=== PATIENT | male | born 1940 | race Caucasian/White ===

== ENCOUNTER 2018-07-04 10:37 | Inpatient (IN) | payer MEDICARE ==
[2018-07-04] VITALS (41 sets, daily range): BP systolic 61–120; BP diastolic 33–99
[~2018-07-04] VITALS: Ht 167.6 cm; Wt 79.8 kg
[~2018-07-04 10:37] MED LIST: ASPI-1169 GT; ATOR10TA GT; BUSP10TA35 PO; CARV6.252 GT; GLIM1TAB2 PO; INSU100I30 SQ; LORA-259 PO; METO-295 PEG; MULT-447 GT; NUT.237L45 GT; OLAN2.5T3 PO; OMEG1CAP PO; PIPE3.3711 IV; QUET100T PO; QUET50TA GT; TRAZ-252 PO; VANC750F2 IV; VITA1TAB56 GT
--- NOTE | 2018-07-04 10:40 | NUR ---
DR RODRÍGUEZ AT BEDSIDE FOR EVAL.
[2018-07-04] MEDS ORDERED: CEFTRIAXONE 1GM BAG (ER ONLY) 50 ML IV ONE ×2 (11:00→11:06)
[2018-07-04] MEDS ORDERED: IV NS 0.9% 1,000 ML BAG IV ONE ×3 (11:00→13:00)
[2018-07-04] MEDS: VANCOMYCIN 1 GM in IV D5W 250 ML IV ONE ×2 (11:00→12:56)
--- NOTE | 2018-07-04 11:04 | NUR ---
RADIOLOGY AT BEDSIDE FOR CHEST XRAY.
[2018-07-04 11:07] LABS: BASOPHILS # (AUTO) 0.2 /CMM (0.0-0.2); BASOPHILS % (AUTO) 0.5 % (0.0-2.0); EOSINOPHILS % (AUTO) 1.6 % (0.0-6.0); HEMATOCRIT 29 % (39-51); HEMOGLOBIN 9.2 g/dL (13.5-17.5); LYMPHOCYTES # (AUTO) 3.3 /CMM (0.8-4.8); LYMPHOCYTES % (AUTO) 8.4 % (20.0-44.0); MEAN CORPUSCULAR HGB CONC 32 g/dl (31.0-36.0); MEAN CORPUSCULAR VOLUME 95 fL (80-96); NEUTROPHILS # (AUTO) 33.1 /CMM (1.8-8.9); NEUTROPHILS % (AUTO) 84.5 % (43.0-81.0); PLATELET COUNT (AUTO) 564 /CMM (150-450); RED BLOOD CELL COUNT(AUTO) 3.02 MIL/uL (4.5-6.0)
[2018-07-04 11:09] LABS: WHITE BLOOD COUNT (AUTO) 39.2 K/uL (4.3-11.0)
--- NOTE | 2018-07-04 11:29 | NUR ---
PT CLEANED, DIAPER REPLACED. DIARRHEA NOTED. RECTAL TEMP 99.2
[2018-07-04 11:33] LABS: ALANINE AMINOTRANSFERASE 77 U/L (12-78); ALKALINE PHOSPHATASE 132 U/L (46-116); ASPARTATE AMINOTRANSFERASE 74 U/L (15-37); BILIRUBIN,DIRECT 0.1 mg/dL (0.0-0.2); BILIRUBIN,TOTAL 0.4 mg/dL (0.2-1.0); CARBON DIOXIDE 22 mmol/L (21-32); CHLORIDE 101 mmol/L (98-107); CREATININE 3.5 mg/dL (0.6-1.3); GLUCOSE 217 mg/dL (74-106); POTASSIUM 6.1 mmol/L (3.5-5.1); SODIUM SERUM 135 mmol/L (136-145)
[2018-07-04 11:35] LABS: ALBUMIN 1.2 g/dL (3.4-5.0); UREA NITROGEN, BLOOD 114 mg/dL (7-18)
[2018-07-04] MEDS: AZITHROMYCIN 500 MG in IV D5W 250 ML IV ONE (11:51)
[2018-07-04 11:59] LABS: BAND % (MANUAL) 8 % (0.0-5.0); EOSINOPHILS % (MANUAL) 1 % (0-4); LYMPHOCYTES % (MANUAL) 10 % (16-48); NEUTROPHILS % (MANUAL) 81 (42-76)
[2018-07-04] MEDS ORDERED: LIDOCAINE 2% JEL UROJET 10 ML MM ONE (12:10)
[2018-07-04] MEDS ORDERED: INSU100V27 SQ (12:13)
[2018-07-04] MEDS ORDERED: AMIN887L GT (12:13)
[2018-07-04] MEDS ORDERED: NUT.237L30 GT (12:13)
[2018-07-04] MEDS ORDERED: INSU100V7 SQ (12:13)
[2018-07-04] MEDS ORDERED: PANT40TA2 GT (12:13)
[2018-07-04] MEDS ORDERED: SODIUM POLYSTYRENE SULFONATE 15 G/60 ML BOTTLE ONE (12:18)
[2018-07-04] MEDS ORDERED: SODIUM POLYSTYRENE SULFONATE 15 G/60 ML BOTTLE PO ONE (12:30)
[2018-07-04] MEDS ORDERED: PANT40SU2 GT (12:36)
[2018-07-04] MEDS ORDERED: QUET100T GT (12:36)
[2018-07-04] MEDS ORDERED: INSU100V28 SQ (12:36)
--- NOTE | 2018-07-04 12:37 | NUR ---
GOT ICU BED 262
[2018-07-04] MEDS: QUETIAPINE FUMARATE 25 MG TABLET PO SCH ×2 (13:00→17:59)
[2018-07-04 13:12] LABS: APPEARANCE,URINE Cloudy (CLEAR); BILIRUBIN,URINE SMALL (NEGATIVE); BLOOD, URINE Trace-intact Ery/uL (NEGATIVE); COLOR,URINE Dark (YELLOW); KETONES,URINE 15 (NEGATIVE); LEUKOCYTE ESTERASE ,URINE Small (NEGATIVE); NITRITE, URINE Positive (NEGATIVE); PROTEIN,URINE 30 mg/dl (NEGATIVE); UGLUCOSE Negative (NEGATIVE); UROBILINOGEN,URINE 0.2 EU/dL (0.2)
--- NOTE | 2018-07-04 13:15 | NUR ---
REPORT GIVEN TO ARPI. PT AWAITING TRANSFER TO FLOOR.
[2018-07-04 13:40] LABS: BACTERIA,URINE Moderate /HPF (None Seen); SQUAMOUS EPITHELIAL CELL,UR Few /HPF (None Seen)
[2018-07-04 13:42] LABS: WBC,URINE 20-50 /HPF (0-3)
--- NOTE | 2018-07-04 14:15 | NUR ---
SPECIFICATIONS CHECKER RECEIVED PT FROM ER BY AUGUSTINE WITH MONITOR. PT ADMITTED FOR SEPSIS. PT CONFUSED, UNABLE TO FOLLOW COMMANDS. O2 AT 2L NC IN PLACE WITH SPO2 96%.
[2018-07-04] MEDS: IV D5/ 0.9% NACL 1,000 ML IV PRN ×2 (14:36→22:50)
[2018-07-04] MEDS ORDERED: DIATR MEGLU/DIATRIZOATE SODIUM 30 ML BOTTLE (GASTROGRAPHIN) ONE (14:53)
[2018-07-04] MEDS ORDERED: NOREPINEPHRINE 8 MG in IV D5W 500 ML IV PRN (15:00)
[2018-07-04] MEDS ORDERED: CARVEDILOL 6.25 MG TABLET GT SCH (17:00)
--- NOTE | 2018-07-04 17:00 | NUR ---
ICU/RN: PT TAKEN TO CT SCAN WITH ORAL CONTRAST. WILL CONTINUE TO MONITOR
[2018-07-04] MEDS ORDERED: FEE PK DOSING 1 MIN EA MC ONE (17:53)
[2018-07-04] MEDS: ATORVASTATIN 10 MG TABLET GT SCH (17:59)
--- NOTE | 2018-07-04 18:15 | NUR ---
ICU/RN: PICC LINE INSERTED, CONSENT IN CHART. X RAY DONE.
--- NOTE | 2018-07-04 19:22 | NUR ---
ICU/RN ENDING NOTES,AM REPORT ENDORSED TO NIGHT NURSE. PT ON NASAL CANULA, PT RESTLESS, PULLING OUT LINES. PER MD ORDER BILATERAL SOFT WRIST RESTRAINTS PUT ON. PT SINUS ON TELE. AAOX1, DOES NOT FOLLOW COMMANDS. LEVO INFUSING FOR BP SUPPORT/IV FLUIDS INFUSING ORDERED. ALL NEEDS ATTENDED, SAFETY MEASURES TAKEN, BED IN LOW POSITION, SIDE RAILS UP, CALL LIGHT WITHIN REACH. PER FAMILY PT HAS DM, ENDORSED TO NIGHT NURSE TO FOLLOW UP ON ACCU CHECKS
--- NOTE | 2018-07-04 19:30 | NUR ---
ELIGIBILITY SUPERVISOR: RECEIVED PT AWAKE AND RESTLESS, UNABLE TO FOLLOW SIMPLE COMMANDS. ON 2L O2 VIA NC WT 02 SAT 92% AND ABOVE. SR-ST ON BUSINESS OFFICE REPRESENTATIVE WT OCCASIONAL PVCs. AFEBRILE. TATA PICC LINE INFUSING LEVOPHED AT 6 MCG/MIN FOR BP SUPPORT AND D5NS AT 125ML/HR. WT NO S/S OF COMPLICATIONS. F/C PATENT AND INTACT DRAINING TEA COLORED URINE TO GRAVITY. BILAT. SOFT WRIST RESTRAINTS IN PLACE FOR EPISODES OF TRYING TO REMOVE IV TUBINGS. NO NEW SKIN BREAKDOWN AND NOTED WT PALPABLE PULSES. WILL START GTF ONCE ASIC VERIFICATION ENGINEER DELIVERS GLUCERNA 1.2 BOTTLE. HOB AT 35 DEGREES. SAFETY PRECAUTION NOTED.
[2018-07-04] MEDS ORDERED: MEROPENEM 500 MG in IV NS 0.9% 50 ML IV SCH (20:00)
[2018-07-04] MEDS: QUETIAPINE FUMARATE 100 MG TABLET GT SCH (22:02)
[2018-07-04] MEDS: GLUCERNA 1.2 1,000 ML BOTTLE GT SCH (22:03)
[2018-07-04] MEDS: INSULIN GLARGINE, 100 UNIT/ML CARTRIDGE SQ SCH (22:13)
[2018-07-05] VITALS (95 sets, daily range): BP systolic 81–113; BP diastolic 39–73
[2018-07-05] MEDS ORDERED: DEXTROSE 50%-WATER 50 ML DISP.SYRIN IV PRN
--- NOTE | 2018-07-05 00:45 | NUR ---
SUPERVISOR TRAVEL INFORMATION CENTER: CALLED AND NOTIFIED DR. ROSALES OF PATIENT'S NOT ON ACCUCHEK AND RECHECKED BLOOD SUGAR WT RESULT OF 375 FROM 353. DISCUSSED CURRENT MEDS WT NEW ORDERS. NOTED AND CARRIED.
[2018-07-05] MEDS: BLOOD SUGAR DIAGNOSTIC 1 EACH STRIP IN SCH ×4 (00:46→17:34)
[2018-07-05] MEDS: INSULIN REGULAR, HUMAN 100 UNIT/ML 3 ML VIAL SQ PRN ×4 (00:53→17:59)
[2018-07-05] MEDS ORDERED: NOREPINEPHRINE 4 MG/4 ML AMPUL IV ONE (01:09)
[2018-07-05] MEDS: NOREPINEPHRINE 16 MG in IV D5W 500 ML IV PRN ×2 (01:21→12:38)
[2018-07-05] MEDS: IV NS 0.9% 1,000 ML IV PRN ×4 (01:23→23:34)
[2018-07-05] MEDS ORDERED: INSULIN REGULAR, HUMAN 100 UNIT/ML 3 ML VIAL ONE (01:53)
[2018-07-05 04:38] LABS: BASOPHILS % (AUTO) 0.1 % (0.0-2.0); EOSINOPHILS % (AUTO) 0.2 % (0.0-6.0); HEMATOCRIT 27 % (39-51); HEMOGLOBIN 8.6 g/dL (13.5-17.5); LYMPHOCYTES # (AUTO) 1.3 /CMM (0.8-4.8); MEAN CORPUSCULAR HGB CONC 32 g/dl (31.0-36.0); MEAN CORPUSCULAR VOLUME 95 fL (80-96); MONOCYTES % (AUTO) 2.3 % (2.0-12.0); NEUTROPHILS # (AUTO) 40.2 /CMM (1.8-8.9); NEUTROPHILS % (AUTO) 94.4 % (43.0-81.0); PLATELET COUNT (AUTO) 529 /CMM (150-450)
[2018-07-05 05:00] LABS: CALCIUM, SERUM 7.2 mg/dL (8.5-10.1); CARBON DIOXIDE 19 mmol/L (21-32); CHLORIDE 105 mmol/L (98-107); CREATININE 2.8 mg/dL (0.6-1.3); GLUCOSE 311 mg/dL (74-106); MAGNESIUM 2.1 mg/dL (1.8-2.4); PHOSPHORUS 5.8 mg/dL (2.5-4.9); SODIUM SERUM 136 mmol/L (136-145)
[2018-07-05 05:01] LABS: WHITE BLOOD COUNT (AUTO) 42.6 K/uL (4.3-11.0)
[2018-07-05 05:03] LABS: UREA NITROGEN, BLOOD 92 mg/dL (7-18)
[2018-07-05 05:06] LABS: OCCULT BLOOD STOOL POSITIVE (NEGATIVE)
[2018-07-05 05:08] LABS: CHOLESTEROL 59 mg/dL (<200); HDL CHOLESTEROL 10 mg/dL (40-60); LDL 28 mg/dL (0-99); THYROID STIMULATING HORMONE 3.496 uIU/mL (0.358-3.74); TRIGLYCERIDES 166 mg/dL (30-150)
[2018-07-05 05:53] LABS: BAND % (MANUAL) 15 % (0.0-5.0); LYMPHOCYTES % (MANUAL) 2 % (16-48); MONOCYTES % (MANUAL) 1 % (0-11.0)
[2018-07-05 05:54] LABS: MYELOCYTES % 1 % (0-0); NEUTROPHILS % (MANUAL) 81 (42-76)
--- NOTE | 2018-07-05 06:30 | NUR ---
RESTAURANT AND BAR MANAGER: ON LEVOPHED AT 16 MCG/MIN FOR BP SUPPORT, NS AT 125ML/HR AND GTF AT 40ML/HR AND WILL ENDORSE TO DAY SHIFT TO INCREASE RATE TILL MAX. GOAL RATE IS REACHED. SAFETY PRECAUTION NOTED AT ALL TIMES.
--- NOTE | 2018-07-05 08:00 | NUR ---
ICU/RN: INITIAL NOTES,AM RECEIVED REPORT FROM NIGHT NURSE. PT ON NASAL CANULA, NO DISTRESS NOTED AT THIS TIME. PT RESTLESS. SINUS TACH ON TELE. LEVO INFUSING FOR BP SUPPORT. RIGHT UPPER ARM PICC LINE PATENT AND INTACT. MEJIA CATH IN DRAINING MADELAINE/TEA COLOR URINE. PT ON BILATERAL WRIST RESTRAINTS, WILL ASSESS PER PROTOCOL. ALL NEEDS WILL BE ATTENDED TO, SAFETY MEASURES TAKEN, BED IN LOW POSITION, SIDE RAILS UP, CALL LIGHT WITHIN REACH WILL CONTINUE TO MONITOR.
[2018-07-05] MEDS ORDERED: IV NS 0.9% 500 ML IV ONE (09:00)
[2018-07-05] MEDS: PANTOPRAZOLE 40 MG/PACK PACK GT SCH (09:33)
[2018-07-05] MEDS: ASPIRIN 81 MG TAB.CHEW GT SCH (09:34)
[2018-07-05] MEDS: GLIMEPIRIDE 1 MG TABLET PO SCH (09:34)
[2018-07-05] MEDS: QUETIAPINE FUMARATE 25 MG TABLET PO SCH ×3 (09:34→17:34)
[2018-07-05 10:49] LABS: ABG BASE EXCESS -5.5 mmol/L; ABG OXYGEN SATURATION 95.3 % (92.0-98.5); ABG PCO2 24.7 mmHg (35.0-45.0); ABG PH 7.458 (7.350-7.450); ABG PO2 82.1 mmHg (75.0-100.0); AaDO2 88.4 mmHg; COHb 0.3 % (0.5-1.5); MetHb 0.9 % (0.0-1.5); O2Hb 94.2 % (94.0-97.0); SITE, ABG Right Radial; VENT MODE, BG NASAL CANNULA
[2018-07-05] MEDS: Z GUARD REMEDY 2 OZ OINT TP SCH (12:36)
[2018-07-05] MEDS: VANCOMYCIN HCL 125 MG/2.5 ML ORAL.SUSP PO SCH ×3 (12:37→23:35)
--- NOTE | 2018-07-05 14:23 | NUR ---
ICU/RN: RECEIVED CALL FROM [employer] FOR POSITIVE MRSA NARES. ID WILL BE INFORMED. PT PLACED ON CONTACT ISOLATION.
[2018-07-05] MEDS: VANCOMYCIN 500 MG in IV D5W 100 ML IV SCH (14:29)
--- NOTE | 2018-07-05 15:30 | NUR ---
ICU/RN: LEFT HEEL WOUND DEBRIDEMENT. CONSENT IN CHART. NO S/S OF BLEEDING NOTED. WOUND ORDERS PLACED BY .
[2018-07-05] MEDS: MEROPENEM 500 MG in IV NS 0.9% 100 ML IV SCH (16:39)
[2018-07-05] MEDS: ATORVASTATIN 10 MG TABLET GT SCH (17:34)
--- NOTE | 2018-07-05 18:55 | NUR ---
ICU/RN ENDING NOTES,AM REPORT WILL BE ENDORSED TO NIGHT NURSE FOR CONTINUATION OF CARE, ALL NEEDS ATTENDED TO. PT TURNED AND REPOSITIONED, BED BATH GIVEN. ON NASAL CANULA, NO DISTRESS. SINUS TACH ON TELE. PICC LINE PATENT AND INTACT. LEVO INFUSING PER PROTOCOL. BILATERAL SOFT WRIST RESTRAINTS IN PLACE, ASSESSED PER PROTOCOL
--- NOTE | 2018-07-05 19:30 | NUR ---
YARD CALLER NOTE PT RECEIVED ASLEEP IN BED BUT EASILY AROUSABLE. A/O X1 TO NAME. ON 4L OF O2 VIA NC AND SATURATING 99%. BREATHING REGULAR AND UNLABORED. HOB ELEVATED AND ON ASPIRATION PRECAUTIONS. IV TATA PICC CLEAN AND DRY WITH LEVO @16MCG/MIN AND NS INFUSING. GT FEEDING WELL TOLERATED AND NO RESIDUALS NOTED. ISOLATION PRECAUTIONS OBSERVED. MEJIA CATHETER IN PLACE AND DRAINING BY GRAVITY. BILATERAL SOFT WRIST RESTRAINTS IN PLACE WITH RADIAL PULSES PALPABLE BILATERALLY AND NO DISCOLORATION NOTED. BED LOCKED IN PLACE WITH BED ALARM ENABLED. WILL CONTINUE TO MONITOR.
[2018-07-05] MEDS ORDERED: HEPARIN SODIUM, PORCINE 5000 UNITS/1 ML VIAL SQ SCH (21:00)
--- NOTE | 2018-07-05 21:19 | NUR ---
ADMINISTRATION INTERNSHIP NOTE NOTIFIED OF POSITIVE STOOL OB. WITH ORDERS TO D/C HEPARIN SQ AND PUT SCD'S ON PT. ORDERS NOTED AND CARRIED OUT.
[2018-07-05] MEDS: METRONIDAZOLE 500MG/ NS 100ML 500 MG in PREMIX 1 EA IV SCH (21:30)
[2018-07-05] MEDS: QUETIAPINE FUMARATE 100 MG TABLET GT SCH (21:30)
[2018-07-05] MEDS: MUPIROCIN OINT 2% 22 GM TUBE SCH (21:30)
[2018-07-05] MEDS: INSULIN GLARGINE, 100 UNIT/ML CARTRIDGE SQ SCH (21:50)
[2018-07-06] VITALS (99 sets, daily range): BP systolic 79–127; BP diastolic 21–84
[2018-07-06] MEDS: BLOOD SUGAR DIAGNOSTIC 1 EACH STRIP IN SCH ×5 (00:25→23:51)
[2018-07-06] MEDS: Z GUARD REMEDY 2 OZ OINT TP SCH ×3 (00:25→23:52)
[2018-07-06] MEDS: INSULIN REGULAR, HUMAN 100 UNIT/ML 3 ML VIAL SQ PRN ×5 (00:29→23:59)
[2018-07-06] MEDS ORDERED: VANCOMYCIN 500 MG in IV D5W 100 ML IV SCH (01:00)
[2018-07-06] MEDS: MEROPENEM 500 MG in IV NS 0.9% 100 ML IV SCH ×2 (01:21→13:42)
[2018-07-06] MEDS: GLUCERNA 1.2 1,000 ML BOTTLE GT SCH (02:10)
[2018-07-06] MEDS: NOREPINEPHRINE 16 MG in IV D5W 500 ML IV PRN ×2 (04:01→18:44)
[2018-07-06] MEDS: METRONIDAZOLE 500MG/ NS 100ML 500 MG in PREMIX 1 EA IV SCH ×3 (04:06→20:52)
[2018-07-06 04:41] LABS: BASOPHILS # (AUTO) 0.1 /CMM (0.0-0.2); BASOPHILS % (AUTO) 0.2 % (0.0-2.0); EOSINOPHILS % (AUTO) 0.5 % (0.0-6.0); HEMATOCRIT 27 % (39-51); HEMOGLOBIN 8.5 g/dL (13.5-17.5); LYMPHOCYTES # (AUTO) 1.9 /CMM (0.8-4.8); LYMPHOCYTES % (AUTO) 4.1 % (20.0-44.0); MEAN CORPUSCULAR HGB CONC 32 g/dl (31.0-36.0); MEAN CORPUSCULAR VOLUME 96 fL (80-96); MONOCYTES # (AUTO) 1.4 /CMM (0.1-1.30); MONOCYTES % (AUTO) 3.1 % (2.0-12.0); NEUTROPHILS # (AUTO) 42.5 /CMM (1.8-8.9); NEUTROPHILS % (AUTO) 92.1 % (43.0-81.0); PLATELET COUNT (AUTO) 486 /CMM (150-450); RED BLOOD CELL COUNT(AUTO) 2.79 MIL/uL (4.5-6.0)
[2018-07-06 04:59] LABS: WHITE BLOOD COUNT (AUTO) 46.2 K/uL (4.3-11.0)
[2018-07-06 05:24] LABS: CARBON DIOXIDE 20 mmol/L (21-32); CHLORIDE 107 mmol/L (98-107); CREATININE 2.2 mg/dL (0.6-1.3); GLUCOSE 285 mg/dL (74-106); MAGNESIUM 1.9 mg/dL (1.8-2.4); PHOSPHORUS 4.7 mg/dL (2.5-4.9); SODIUM SERUM 137 mmol/L (136-145)
[2018-07-06] MEDS: VANCOMYCIN HCL 125 MG/2.5 ML ORAL.SUSP PO SCH ×4 (05:26→23:51)
[2018-07-06 05:28] LABS: UREA NITROGEN, BLOOD 85 mg/dL (7-18)
[2018-07-06 05:31] LABS: BAND % (MANUAL) 10 % (0.0-5.0); LYMPHOCYTES % (MANUAL) 2 % (16-48); MONOCYTES % (MANUAL) 1 % (0-11.0); NEUTROPHILS % (MANUAL) 86 (42-76)
[2018-07-06 05:32] LABS: METAMYELOCYTES % 1 % (0-0)
--- NOTE | 2018-07-06 07:29 | NUR ---
received care of patient from harini vazquez. patient baseline dementia a/ox1 awake to light touch. patient becomes agitated when moved/touched. tolerating low flow nc saturation 95% and above. patient with pia picc c/d/i/p/good blood return and ivf running per order and levo per spreadsheet; with continued increased needs. tele sinus tachy. g tube with tube feeding running per order. consistently elevated blood sugars; will follow up. pt anticoag d/c'd as ob positive stool however no s/s active bleeding noted. safety, skin, aspiration, and isolation precautions in place and will monitor.
[2018-07-06] MEDS: IV NS 0.9% 250 ML IV PRN (08:42)
[2018-07-06] MEDS: IV NS 0.9% 1,000 ML IV PRN ×2 (08:43→16:56)
[2018-07-06] MEDS: ASPIRIN 81 MG TAB.CHEW GT SCH (08:43)
[2018-07-06] MEDS: GLIMEPIRIDE 1 MG TABLET PO SCH (08:43)
[2018-07-06] MEDS: PANTOPRAZOLE 40 MG/PACK PACK GT SCH (08:43)
[2018-07-06] MEDS: QUETIAPINE FUMARATE 25 MG TABLET PO SCH ×3 (08:43→16:58)
[2018-07-06] MEDS: MUPIROCIN OINT 2% 22 GM TUBE SCH ×2 (08:53→20:53)
--- NOTE | 2018-07-06 10:24 | NUR ---
PER TARA WOUND PLEASE ORDER [facility] MATTRESS
--- NOTE | 2018-07-06 10:56 | NUR ---
NOTIFIED DR ESTRADA PATIENT POSITIVE FOR C DIFF. PER MD ENCISO MODERATE INSULIN COVERAGE AND ORDER AGRESSIVE SLIDING SCALE.
--- NOTE | 2018-07-06 12:30 | NUR ---
DR JAQUEZ AT BEDSIDE. UPDATED ON PATIENT CONDITION. AWARE PATIENT TACHYCARDIC TODAY. NO NEW ORDERS. CURRENTLY TITRATING DOWN ON LEVOPHED
[2018-07-06] MEDS: VANCOMYCIN 500 MG in IV D5W 100 ML IV SCH (12:44)
[2018-07-06] MEDS ORDERED: VANCOMYCIN 500 MG in IV D5W 100 ML IV ONE (14:00)
[2018-07-06] MEDS: ATORVASTATIN 10 MG TABLET GT SCH (17:07)
--- NOTE | 2018-07-06 19:10 | NUR ---
ALL DUE MEDS GIVEN AND ALL NEEDS MET. PATIENT IVF RUNNING PER MD ORDER, LEVO RUNNING; SEE SPREADSHEET. PATIENT IV SITES C/D/I/P AND MEJIA CATH TO GRAVITY. PATIENT ROOM AIR STABLE 96%. SAFETY, SKIN, ASPIRATION, AND ISOLATION PRECAUTIONS IN PLACE AND MONITORED THROUGHOUT DAY. CARE ENDORSED TO RN FOR SADIQ
--- NOTE | 2018-07-06 19:30 | NUR ---
PICKER TENDER HELPER NOTE PT RECEIVED ASLEEP IN BED. OPENS EYES AND NOTED NONVERBAL. ON ROOM AIR AND SATURATING 99%. BREATHING EVEN AND UNLABORED. HOB ELEVATED AND ON ASPIRATION PRECAUTIONS. IV TATA PICC WITH LEVO @ 14MCG/MIN AND FLUIDS INFUSING. GT IN PLACE AND WITHOUT RESIDUALS NOTED. TELE-ST 120'S. NO DISTRESS NOTED. ISOLATION PRECAUTIONS OBSERVED. MEJIA CATHETER IN PLACE AND DRAINING. ENDORSED TO HOLD FEEDING FOR 4 HOURS AND THEN RESTART. WILL CONTINUE TO MONITOR.
[2018-07-06] MEDS: CEFTRIAXONE 1 G in IV D5W 50 ML IV SCH (20:11)
[2018-07-06] MEDS: QUETIAPINE FUMARATE 100 MG TABLET GT SCH (21:44)
[2018-07-06] MEDS: INSULIN GLARGINE, 100 UNIT/ML CARTRIDGE SQ SCH (22:00)
[2018-07-07] VITALS (86 sets, daily range): BP systolic 79–142; BP diastolic 47–80
[2018-07-07] MEDS ORDERED: VANCOMYCIN HCL 125 MG/2.5 ML ORAL.SUSP PO SCH
[2018-07-07] MEDS: GLUCERNA 1.2 1,000 ML BOTTLE GT SCH (00:58)
[2018-07-07] MEDS: IV NS 0.9% 1,000 ML IV PRN ×3 (00:58→16:56)
[2018-07-07] MEDS: METRONIDAZOLE 500MG/ NS 100ML 500 MG in PREMIX 1 EA IV SCH ×3 (05:01→22:41)
[2018-07-07] MEDS: VANCOMYCIN HCL 125 MG/2.5 ML ORAL.SUSP PO SCH ×3 (05:02→17:00)
[2018-07-07 05:10] LABS: CALCIUM, SERUM 7.1 mg/dL (8.5-10.1); CARBON DIOXIDE 19 mmol/L (21-32); CHLORIDE 109 mmol/L (98-107); CREATININE 1.9 mg/dL (0.6-1.3); GLUCOSE 176 mg/dL (74-106); PHOSPHORUS 4.4 mg/dL (2.5-4.9); POTASSIUM 4.5 mmol/L (3.5-5.1); SODIUM SERUM 138 mmol/L (136-145); UREA NITROGEN, BLOOD 71 mg/dL (7-18)
[2018-07-07 05:26] LABS: BASOPHILS # (AUTO) 0.1 /CMM (0.0-0.2); BASOPHILS % (AUTO) 0.2 % (0.0-2.0); EOSINOPHILS % (AUTO) 0.6 % (0.0-6.0); HEMATOCRIT 28 % (39-51); HEMOGLOBIN 8.9 g/dL (13.5-17.5); LYMPHOCYTES # (AUTO) 2.6 /CMM (0.8-4.8); LYMPHOCYTES % (AUTO) 5.8 % (20.0-44.0); MEAN CORPUSCULAR HGB CONC 32 g/dl (31.0-36.0); MEAN CORPUSCULAR VOLUME 95 fL (80-96); MONOCYTES # (AUTO) 1.3 /CMM (0.1-1.30); NEUTROPHILS # (AUTO) 40.3 /CMM (1.8-8.9); NEUTROPHILS % (AUTO) 90.4 % (43.0-81.0); PLATELET COUNT (AUTO) 500 /CMM (150-450); RED BLOOD CELL COUNT(AUTO) 2.96 MIL/uL (4.5-6.0)
[2018-07-07 05:40] LABS: WHITE BLOOD COUNT (AUTO) 44.5 K/uL (4.3-11.0)
[2018-07-07] MEDS: BLOOD SUGAR DIAGNOSTIC 1 EACH STRIP IN SCH ×3 (05:57→17:00)
[2018-07-07] MEDS: INSULIN REGULAR, HUMAN 100 UNIT/ML 3 ML VIAL SQ PRN ×3 (06:04→17:25)
[2018-07-07 06:09] LABS: BAND % (MANUAL) 17 % (0.0-5.0); EOSINOPHILS % (MANUAL) 1 % (0-4); LYMPHOCYTES % (MANUAL) 3 % (16-48); METAMYELOCYTES % 3 % (0-0); MONOCYTES % (MANUAL) 1 % (0-11.0); MYELOCYTES % 1 % (0-0); NEUTROPHILS % (MANUAL) 71 (42-76); REACTIVE LYMPHOCYTES 3 % (0-0)
--- NOTE | 2018-07-07 06:54 | NUR ---
SPIRITS MODEL NOTE. PT REMAINED STABLE DURING SHIFT. NO DISTRESS NOTED. KEPT CLEAN AND DRY. REPOSITIONED Q2H. ALL NEEDS ATTENDED TO PROMPTLY. GT FEEDING RESTARTED AND WELL TOLERATED. HOB MAINTAINED ELEVATED. ISOLATION PRECAUTIONS OBSERVED. WILL ENDORSE TO NEXT SHIFT FOR CONTINUITY OF CARE.
--- NOTE | 2018-07-07 07:15 | NUR ---
RECEIVED CARE OF PATIENT. ROOM AIR STABLE. TUBE FEEDING RUNNING PER ORDER. TUBE FEEDING PAUSED 8PM-MIDNIGHT PER ORDER; NO RESIDUAL NOTED. PATIENT IV SITES C/D/I/P AND IVF RUNNING PER ORDER. LEVO RUNNING PER SPREADSHEET. MEJIA IN PLACE DRAINING TO GRAVITY. WOUND SKIN, SAFETY, ASPIRATION, AND ISOLATION PRECAUTIONS IN PLACE AND WILL MONITOR.
[2018-07-07] MEDS: QUETIAPINE FUMARATE 25 MG TABLET PO SCH ×3 (08:43→16:48)
[2018-07-07] MEDS: GLIMEPIRIDE 1 MG TABLET PO SCH (08:43)
[2018-07-07] MEDS: ASPIRIN 81 MG TAB.CHEW GT SCH (08:43)
[2018-07-07] MEDS: PANTOPRAZOLE 40 MG/PACK PACK GT SCH (08:43)
[2018-07-07] MEDS: HYDROGEL DRESSING 90 GM TUBE TP SCH (08:44)
[2018-07-07] MEDS: MUPIROCIN OINT 2% 22 GM TUBE SCH ×2 (08:45→22:41)
[2018-07-07] MEDS: IV NS 0.9% 250 ML IV PRN (08:45)
--- NOTE | 2018-07-07 10:30 | NUR ---
INSERTED FLEXI SEAL PATIENT IS CONTINUING TO HAVE LOOSE STOOL AND STAGE 3 WOUND ON SACRUM WITH WORSENING SKIN BREAKDOWN. CONTINUING FREQUENT SKIN CHECKS/ Z GUARD/WOUND CARE ORDERED.
[2018-07-07] MEDS: Z GUARD REMEDY 2 OZ OINT TP SCH (12:32)
[2018-07-07] MEDS: NOREPINEPHRINE 16 MG in IV D5W 500 ML IV PRN (12:44)
[2018-07-07] MEDS ORDERED: VANCOMYCIN 1 GM in IV D5W 250 ML IV SCH (13:00)
--- NOTE | 2018-07-07 15:59 | NUR ---
PATIENT NODDING HE IS IN PAIN. PER DR OSMAN TODD TO ORDER ULTRAM 50MG PO Q6H PRN FOR PAIN
[2018-07-07] MEDS: TRAMADOL HCL 50 MG TABLET PO PRN (16:48)
[2018-07-07] MEDS: ATORVASTATIN 10 MG TABLET GT SCH (17:00)
--- NOTE | 2018-07-07 19:16 | NUR ---
ALL DUE MEDS GIVEN AND ALL NEEDS MET. PATIENT NODS PAIN DIMINISHED AFTER PAIN MEDICATIONS. IVF PER ORDER; SEE SPREADSHEET. BP STABLE AND TITRATING LEVO PER PROTOCOL. MEJIA IN PLACE DRAINING TO GRAVITY. FLEXI SEAL IN PLACE. ROOM AIR STABLE. SAFETY, SKIN, ASPIRATION, AND ISOLATION PRECAUTIONS IN PLACE AND MONITORED THROUGHOUT DAY. CARE ENDORSED TO RN FOR SADIQ
--- NOTE | 2018-07-07 20:02 | NUR ---
VASCULAR NEUROLOGIST. INITIAL ASSESSMENT. RECEIVED THE PT REST ON THE BED. AWAKE, DOES NOT FOLLOW COMMANDS. HOSPICE RN SHOWING S TACH. PT ON ROOM AIR. SAT 98%. NO ACUTE DISTRESS NOTED. IV RT UPPERARM PICC LINE IVF NS 125 ML/H. LEVOPHED 8MCG/MIN, HOB ELEVATED. GT FEEDING GLUCERNA TOLERATED WELL. FLEXA SEAL INTACT. CEE SOFT WRIST RESTRAINT CHECKED AND RELEASED. NO INJURY OR REDNESS NOTED. FC PATENT. URINE DRAINING. WILL CONTINUE TO MONITOR VITALS.
[2018-07-07] MEDS: CEFTRIAXONE 1 G in IV D5W 50 ML IV SCH (22:40)
[2018-07-07] MEDS: QUETIAPINE FUMARATE 100 MG TABLET GT SCH (22:47)
[2018-07-07] MEDS: INSULIN GLARGINE, 100 UNIT/ML CARTRIDGE SQ SCH (22:48)
[2018-07-08] VITALS (93 sets, daily range): BP systolic 76–127; BP diastolic 35–80
[2018-07-08] MEDS: GLUCERNA 1.2 1,000 ML BOTTLE GT SCH (00:15)
[2018-07-08] MEDS: VANCOMYCIN HCL 125 MG/2.5 ML ORAL.SUSP PO SCH ×5 (00:17→23:35)
[2018-07-08] MEDS: BLOOD SUGAR DIAGNOSTIC 1 EACH STRIP IN SCH ×5 (00:17→23:33)
[2018-07-08] MEDS: INSULIN REGULAR, HUMAN 100 UNIT/ML 3 ML VIAL SQ PRN ×4 (00:23→23:37)
[2018-07-08] MEDS: Z GUARD REMEDY 2 OZ OINT TP SCH ×3 (01:13→23:35)
[2018-07-08] MEDS: IV NS 0.9% 1,000 ML IV PRN ×3 (03:05→19:08)
--- NOTE | 2018-07-08 03:46 | NUR ---
COMMERCIAL REVIEW APPRAISER. AM CARE. ORAL CARE, BED BATH GIVEN. LINEN CHANGED. REMAINING SAME IVF NS 125ML/H. ELECTROMYOGRAPHIC TECHNICIAN SHOWING S TACH. LEVOPHED 8MCG/MIN, HOB ELEVATED. GT FEEDING TOLERATED WELL. FLEXA SEAL INTACT. CEE SOFT WRIST RESTRAINT CHECKED AND RELEASED. NO INJURY OR REDNESS NOTED. FC PATENT. URINE DRAINING. AFEBRILE. TURN AND REPOSITION Q2H. WILL CONTINUE TO MONITOR VITALS.
[2018-07-08 04:48] LABS: HEMATOCRIT 27 % (39-51); HEMOGLOBIN 8.6 g/dL (13.5-17.5); MEAN CORPUSCULAR HGB CONC 32 g/dl (31.0-36.0); MEAN CORPUSCULAR VOLUME 95 fL (80-96); PLATELET COUNT (AUTO) 473 /CMM (150-450); RED BLOOD CELL COUNT(AUTO) 2.82 MIL/uL (4.5-6.0); WHITE BLOOD COUNT (AUTO) 28.3 K/uL (4.3-11.0)
[2018-07-08 04:55] LABS: CALCIUM, SERUM 7.1 mg/dL (8.5-10.1); CARBON DIOXIDE 18 mmol/L (21-32); CHLORIDE 111 mmol/L (98-107); CREATININE 1.7 mg/dL (0.6-1.3); GLUCOSE 153 mg/dL (74-106); PHOSPHORUS 5.3 mg/dL (2.5-4.9); POTASSIUM 4.3 mmol/L (3.5-5.1); SODIUM SERUM 141 mmol/L (136-145); UREA NITROGEN, BLOOD 65 mg/dL (7-18)
[2018-07-08 05:13] LABS: BAND % (MANUAL) 5 % (0.0-5.0); EOSINOPHILS % (MANUAL) 1 % (0-4); LYMPHOCYTES % (MANUAL) 8 % (16-48); MONOCYTES % (MANUAL) 1 % (0-11.0); NEUTROPHILS % (MANUAL) 85 (42-76)
[2018-07-08] MEDS: METRONIDAZOLE 500MG/ NS 100ML 500 MG in PREMIX 1 EA IV SCH ×3 (06:27→20:19)
--- NOTE | 2018-07-08 07:10 | NUR ---
RECEIVED CARE OF PATIENT. ROOM AIR STABLE. RESTING WITH NO S/S DISTRESS. FLACC 0. IV SITES C/D/I/P AND IVF RUNNING PER MD ORDER. CONTINUING TO TITRATE OFF LEVOPHED CURRENTLY RUNNING AT 4MCG/MIN. PATIENT WITH FLEXI SEAL IN PLACE S/T DIARRHEA AND CONTINUED SKIN BREAKDOWN ON SACRUM/BUTTOCK; DRESSINGS C/D/I AT THIS TIME. MEJIA CATH IN PLACE DRAINING TO GRAVITY. TUBE FEEDING PER ORDER WITHOUT RESIDUAL. SAFETY, SKIN, ASPIRATION, AND ISOLATION PRECAUTIONS IN PLACE AND WILL MONITOR
[2018-07-08] MEDS: IV NS 0.9% 250 ML IV PRN (07:49)
[2018-07-08] MEDS: QUETIAPINE FUMARATE 25 MG TABLET PO SCH ×3 (09:04→16:54)
[2018-07-08] MEDS: PANTOPRAZOLE 40 MG/PACK PACK GT SCH (09:04)
[2018-07-08] MEDS: GLIMEPIRIDE 1 MG TABLET PO SCH (09:04)
[2018-07-08] MEDS: ASPIRIN 81 MG TAB.CHEW GT SCH (09:04)
[2018-07-08] MEDS: NOREPINEPHRINE 16 MG in IV D5W 500 ML IV PRN (09:05)
[2018-07-08] MEDS: HYDROGEL DRESSING 90 GM TUBE TP SCH (09:06)
[2018-07-08] MEDS: MUPIROCIN OINT 2% 22 GM TUBE SCH ×2 (09:07→20:21)
--- NOTE | 2018-07-08 11:54 | NUR ---
DR LUNA AT BEDSIDE. UPDATED ON PATIENT SACRAL WOUND. NO NEW ORDERS
[2018-07-08] MEDS: TRAMADOL HCL 50 MG TABLET PO PRN ×2 (12:43→20:20)
--- NOTE | 2018-07-08 14:30 | NUR ---
dr simmons at bedside. updated on patient condition, labs, vs
[2018-07-08] MEDS: ATORVASTATIN 10 MG TABLET GT SCH (17:08)
--- NOTE | 2018-07-08 19:08 | NUR ---
VSS. TITRATING LEVO PER PROTOCOL. FLEXI SEAL IN PLACE NO LEAKING NOTED; -1000ML STOOL. MEJIA CATH DRAINING TO GRAVITY. TUBE FEEDING PER ORDER NO RESIDUAL NOTED. SAFETY, SKIN, ASPIRATION PRECAUTIONS IN PLACE AND MONITORED THROUGHOUT DAY. IV SITE C/D/I/P. CARE ENDORSED TO RN FOR SADIQ
[2018-07-08] MEDS: CEFTRIAXONE 1 G in IV D5W 50 ML IV SCH (19:25)
--- NOTE | 2018-07-08 19:30 | NUR ---
COMMISSION BROKER INITIAL SHIFT NOTES RECEIVED PATIENT IN BED, AWAKE, ALERT X1 TO SELF, DISORIENTED, UNABLE TO FOLLOW COMMANDS/UNCOOPERATIVE, NOTED TO MUMBLE AT TIMES. BREATHING EVEN AND NONLABORED, TOLERATING ROOM AIR WELL, FREE FROM ANY S/S OF RESPIRATORY DISTRESS. BEDSIDE FITTING ROOM INSPECTOR SHOWING SINUS TACHYCARDIA, HR 120s AT THIS TIME. TATA PICC PATENT AND INTACT, ALL PORTS FLUSHED WITH NS, NOTED WITH GOOD VENOUS RETURN. CONTINUES ON LEVOPHED DRIP, CURRENTLY @ 8MCG, WILL TITRATE ACCORDINGLY. MEJIA CATHETER PATENT AND INTACT, DRAINING CLEAR, YELLOW/MADELAINE COLORED URINE VIA GRAVITY. RECTAL TUBE FLUSHED, PATENT AND INTACT, DRAINING LIQUID YELLOW/BROWN STOOL. GT PATENT AND INTACT, TUBE FEEDING INFUSING ORDERED, MINIMAL GASTRIC RESIDUALS, 10ML. HOB KEPT ELEVATED FOR ASPIRATION PRECAUTIONS. ISOLATION PRECAUTIONS MAINTAINED, WILL CONTINUE TO CLOSELY MONITOR THE PATIENT
[2018-07-08] MEDS: INSULIN GLARGINE, 100 UNIT/ML CARTRIDGE SQ SCH (21:45)
[2018-07-08] MEDS: QUETIAPINE FUMARATE 100 MG TABLET GT SCH (21:45)
[2018-07-09] VITALS (95 sets, daily range): BP systolic 65–137; BP diastolic 20–88
[2018-07-09] MEDS: GLUCERNA 1.2 1,000 ML BOTTLE GT SCH (00:20)
--- NOTE | 2018-07-09 00:37 | NUR ---
ORTHOPHOTOGRAPHY TECHNICIAN NOTES AFTER REPOSITIONING, PATIENT NOTED TO HAVE PERSISTENT TACHYCARDIA, HR 140s, ST, NOTED WITH FACIAL GRIMACE. NO FEVER, TRAMADOL LAST GIVEN @ 2019. CALLED AND SPOKE TO DR ROSALES, WITH NEW ORDERS TO DC TRAMADOL, AND TO START MORPHINE 1 MG IVP Q6H PRN PAIN. ORDER READ BACK FOR CLARIFICATION. WILL ADMINISTER AND CONTINUE CLOSE MONITORING
[2018-07-09] MEDS ORDERED: MORPHINE SULFATE INJ 4 MG/ML DISP.SYRIN ONE (00:45)
[2018-07-09] MEDS ORDERED: MORPHINE SULFATE INJ 2 MG/ML DISP.SYRIN IV PRN (01:00)
--- NOTE | 2018-07-09 01:29 | NUR ---
COOLING SYSTEM OPERATOR NOTES PATIENT ASLEEP IN BED, APPEARS COMFORTABLE, BUT HR REMAINS IN 140s. DR ROSALES CALLED AND MADE AWARE, WITH ORDER FOR 500ML NS BOLUS X1. ORDER READ BACK FOR CLARIFICATION. WILL ADMINISTER AND CLOSELY MONITOR
[2018-07-09] MEDS ORDERED: IV NS 0.9% 500 ML IV ONE (01:30)
[2018-07-09] MEDS: IV NS 0.9% 1,000 ML IV PRN ×3 (02:09→18:58)
--- NOTE | 2018-07-09 03:00 | NUR ---
SLAB INSTALLER NOTES PATIENT'S HR REMAINS IN 140s, OTHERWISE ASYMPTOMATIC, MD AWARE, WILL CONTINUE CLOSE MONITORING
--- NOTE | 2018-07-09 04:10 | NUR ---
CIVIL ENGINEER IN TRAINING NOTES PATIENT'S HR SUSTAINED > 140, SINUS TACHYCARDIA. CALLED AND SPOKE TO AMMONIA STILL OPERATOR, DR YI, WITH ORDER FOR STAT EKG. EKG RESULT RELAYED TO MD. WHILE EKG BEING PERFORMED, PATIENT'S HR NOTED TO DROP BACK DOWN TO BASELINE IN THE 120s. DR YI ALSO MADE AWARE REGARDING DROP IN HR BACK TO BASELINE 120s. PER DR YI, OBTAIN ANOTHER EKG IS HR SUSTAINS >140, AND THAT HE WILL BE SEEING THE PATIENT LATER TODAY. NO FURTHER ORDERS RECEIVED. WILL CONTINUE TO CLOSELY MONITOR
[2018-07-09] MEDS: BLOOD SUGAR DIAGNOSTIC 1 EACH STRIP IN SCH ×3 (05:09→18:06)
[2018-07-09] MEDS: METRONIDAZOLE 500MG/ NS 100ML 500 MG in PREMIX 1 EA IV SCH ×3 (05:09→21:21)
[2018-07-09] MEDS: VANCOMYCIN HCL 125 MG/2.5 ML ORAL.SUSP PO SCH ×3 (05:10→17:01)
[2018-07-09 05:16] LABS: BASOPHILS % (AUTO) 0.1 % (0.0-2.0); CALCIUM, SERUM 6.9 mg/dL (8.5-10.1); CARBON DIOXIDE 19 mmol/L (21-32); CHLORIDE 115 mmol/L (98-107); CREATININE 1.4 mg/dL (0.6-1.3); EOSINOPHILS % (AUTO) 3.2 % (0.0-6.0); GLUCOSE 143 mg/dL (74-106); HEMATOCRIT 26 % (39-51); HEMOGLOBIN 8.4 g/dL (13.5-17.5); LYMPHOCYTES # (AUTO) 1.7 /CMM (0.8-4.8); LYMPHOCYTES % (AUTO) 8.9 % (20.0-44.0); MEAN CORPUSCULAR HGB CONC 32 g/dl (31.0-36.0); MEAN CORPUSCULAR VOLUME 96 fL (80-96); MONOCYTES # (AUTO) 0.7 /CMM (0.1-1.30); MONOCYTES % (AUTO) 3.9 % (2.0-12.0); NEUTROPHILS # (AUTO) 15.8 /CMM (1.8-8.9); NEUTROPHILS % (AUTO) 83.9 % (43.0-81.0); PLATELET COUNT (AUTO) 460 /CMM (150-450); POTASSIUM 4.6 mmol/L (3.5-5.1); RED BLOOD CELL COUNT(AUTO) 2.72 MIL/uL (4.5-6.0); SODIUM SERUM 141 mmol/L (136-145); UREA NITROGEN, BLOOD 55 mg/dL (7-18); WHITE BLOOD COUNT (AUTO) 18.8 K/uL (4.3-11.0)
[2018-07-09 06:03] LABS: BAND % (MANUAL) 1 % (0.0-5.0); LYMPHOCYTES % (MANUAL) 4 % (16-48); METAMYELOCYTES % 2 % (0-0); MONOCYTES % (MANUAL) 4 % (0-11.0); NEUTROPHILS % (MANUAL) 89 (42-76)
--- NOTE | 2018-07-09 06:27 | NUR ---
PHARMACY CLERK CLOSING NOTES PATIENT RESTING IN BED, ASLEEP, EYES CLOSED. NO FACIAL GRIMACE NOTED. HR REMAINS IN THE 120s, ST. WILL ENDORSE THE PATIENT TO THE AM SHIFT NURSE FOR CONTINUITY OF CARE
--- NOTE | 2018-07-09 07:15 | NUR ---
RECEIVED CARE OF PATIENT FROM MARIA LUISA. IV SITES C/D/I/P GOOD BLOOD RETURN. IVF PER ORDER AND LEVO PER PROTOCOL. PER RN PATIENT WAS TACHYCARDIC SUSTAINED LAST NIGHT 140'S DESPITE NEW ORDERS OF MORPHINE AND BOLUS WITH NO HELP; HOWEVER THIS AM PER RN PATIENT HR WENT BACK TO LOW 100'S-120'S. AT THIS TIME PATIENT 110-120'S. MEJIA CATH INTACT AND BRODY CARE COMPLETED; PATIENT EDEMA INCREASING WILL NOTIFY MD. FLEXI SEAL IN PLACE AND HYGIENE COMPLETED VERY SLIGHT TO NO LEAKING FROM FLEXI SEAL. SACRAL DRESSING C/D/I. TUBE FEEDING PER ORDER AND NO RESIDUAL NOTED. SAFETY, SKIN, ASPIRATION, AND ISOLATION PRECAUTIONS IN PLACE AND WILL MONITOR. PATIENT REPOSITIONED. PT CONTINUES TO LEAN TOWARD RIGHT SIDE AND TURN HEAD TO RIGHT. MEPILEX AND PILLOWS APPLIED TO ASSIST TURNING TO LEFT AND OFFLOAD EAR; WILL MONITOR. Addendum: 07/09/18 at 0829 by PRINCESS AHUJA RN PLEASE DISREGARD NOTE. INCORRECT CHARTING
[2018-07-09] MEDS: GLIMEPIRIDE 1 MG TABLET PO SCH ×2 (08:01→08:34)
[2018-07-09] MEDS: PANTOPRAZOLE 40 MG/PACK PACK GT SCH ×2 (08:01→08:34)
[2018-07-09] MEDS: HYDROGEL DRESSING 90 GM TUBE TP SCH ×2 (08:01→08:31)
[2018-07-09] MEDS: QUETIAPINE FUMARATE 25 MG TABLET PO SCH ×4 (08:01→16:50)
[2018-07-09] MEDS: MUPIROCIN OINT 2% 22 GM TUBE SCH ×3 (08:02→20:52)
[2018-07-09] MEDS: ASPIRIN 81 MG TAB.CHEW GT SCH ×2 (08:05→08:36)
[2018-07-09] MEDS: NOREPINEPHRINE 16 MG in IV D5W 500 ML IV PRN ×2 (08:06→08:33)
[2018-07-09] MEDS: IV NS 0.9% 250 ML IV PRN ×2 (08:13→08:32)
--- NOTE | 2018-07-09 09:25 | NUR ---
TELLERS SUPERVISOR DR YI AT BEDSIDE. AWARE OF PT 4 H 140'S HR. PER MD STANDING ORDER EKG IF HR SUSTAINS 140'S OR OVER. NO OTHER ORDERS.
--- NOTE | 2018-07-09 09:43 | NUR ---
DR MORTON AT BEDSIDE. AWARE PATIENT MORE SWOLLEN, URINE OUTPUT LESSENED AND PERIOD OF TACHYCARDIA LAST NIGHT
--- NOTE | 2018-07-09 13:07 | NUR ---
per dr simmons at bedside. ok to order ativan ivp 1mg q6h for periods of agitation and increased discomfort. md aware patient more edema, decreased urine output, continues with diarrhea. per md ortiz to titrate levo for map not systolic. will monitor
[2018-07-09] MEDS: INSULIN REGULAR, HUMAN 100 UNIT/ML 3 ML VIAL SQ PRN (13:24)
[2018-07-09] MEDS: Z GUARD REMEDY 2 OZ OINT TP SCH (13:26)
[2018-07-09] MEDS: LORAZEPAM INJ 2 MG/ML VIAL IV PRN (16:05)
[2018-07-09] MEDS: HYDROMORPHONE INJ 2 MG/ML DISP.SYRIN IV PRN (16:50)
[2018-07-09] MEDS: ATORVASTATIN 10 MG TABLET GT SCH (17:00)
--- NOTE | 2018-07-09 18:17 | NUR ---
SPOKE WITH DR YI AND NOTIFIED PATIENT CONTINUES TACHYCARDIC DESPITE ATIVAN/DILAUDID. PER MD PLEASE MONITOR. IF SBP UNDER 90 GIVE 250ML NS BOLUS PRN.
--- NOTE | 2018-07-09 18:48 | NUR ---
ALL DUE MEDS GIVEN AND ALL NEEDS MET. PATIENT RESTING AT THIS TIME. MEJIA CATH IN PLACE DRAINING TO GRAVITY. IV SITE C/D/I/P/GOOD BLOOD RETURN. TUBE FEEDING PER ORDER NO RESIDUALS NOTED. WOUND CARE PER MD ORDER/PRN SOILING. PATIENT SUCCESSFULLY OFF LEVO SINCE 1314 TODAY AND CONTINUING TO MONITOR BP. SAFETY, SKIN, ASPIRATION PRECAUTIONS, ISOLATION PRECAUTIONS IN PLACE THROUGHOUT DAY. PER DR YI MONITORING HR AND PRN 250NS BOLUSES IF SBP REMAINS UNDER 90.
--- NOTE | 2018-07-09 19:45 | NUR ---
HEALTH DIRECTOR: RECEIVED PT LETHARGIC AND UNABLE TO FOLLOW SIMPLE COMMANDS. ON ROOM AIR WT NO SOB. NO EVIDENCE OF DISCOMFORT. ST ON TRUCK BODY BUILDER AND IN 120s. STILL OFF LEVOPHED AND WILL CONTINUE TO MONITOR BP. AFEBRILE. GTF TOLERATING WELL WT NO RESIDUAL. TATA PICC INFUSING NS AT 125ML/HR WT NO S/S OF COMPLICATIONS. TEA COLORED URINE NOTED ON F/C. BILAT. SOFT WRIST RESTRAINTS NOTED FOR EPISODES OF TRYING TO REMOVE TUBINGS. SKIN AND CIRCULATION WNL. RECTAL TUBE INTACT AND PATENT DRAINING YELLOW LIQUID STOOLS. HOB AT 35 DEGREES. SAFETY AND ISOLATION NOTED. WILL CONTINUE TO MONITOR.
[2018-07-09] MEDS: CEFTRIAXONE 1 G in IV D5W 50 ML IV SCH (20:45)
[2018-07-09] MEDS: QUETIAPINE FUMARATE 100 MG TABLET GT SCH (21:22)
[2018-07-09] MEDS: INSULIN GLARGINE, 100 UNIT/ML CARTRIDGE SQ SCH (21:27)
[2018-07-10] VITALS (45 sets, daily range): BP systolic 87–122; BP diastolic 26–84
[2018-07-10] MEDS: VANCOMYCIN HCL 125 MG/2.5 ML ORAL.SUSP PO SCH ×5 (00:06→23:55)
[2018-07-10] MEDS: GLUCERNA 1.2 1,000 ML BOTTLE GT SCH ×2 (00:06→23:56)
[2018-07-10] MEDS: BLOOD SUGAR DIAGNOSTIC 1 EACH STRIP IN SCH ×4 (00:22→18:17)
[2018-07-10] MEDS: Z GUARD REMEDY 2 OZ OINT TP SCH ×2 (00:23→09:19)
[2018-07-10] MEDS: HYDROMORPHONE INJ 2 MG/ML DISP.SYRIN IV PRN ×2 (02:53→12:24)
[2018-07-10] MEDS: IV NS 0.9% 1,000 ML IV PRN ×3 (02:54→18:25)
--- NOTE | 2018-07-10 03:00 | NUR ---
LOAN REVIEW OFFICER: NOTED WT ELEVATED HR IN 150s, FACIAL GRIMACING AND RESTLESSNESS DURING AND AFTER BED BATH. DILAUDID ADMINISTERED ORDERED. WILL CONTINUE TO MONITOR EFFECTIVITY.
[2018-07-10] MEDS: LORAZEPAM INJ 2 MG/ML VIAL IV PRN (04:25)
[2018-07-10 04:26] LABS: BASOPHILS # (AUTO) 0.1 /CMM (0.0-0.2); BASOPHILS % (AUTO) 0.4 % (0.0-2.0); EOSINOPHILS % (AUTO) 2.9 % (0.0-6.0); HEMATOCRIT 23 % (39-51); HEMOGLOBIN 7.5 g/dL (13.5-17.5); LYMPHOCYTES # (AUTO) 1.4 /CMM (0.8-4.8); LYMPHOCYTES % (AUTO) 9.7 % (20.0-44.0); MEAN CORPUSCULAR HGB CONC 33 g/dl (31.0-36.0); MEAN CORPUSCULAR VOLUME 96 fL (80-96); MONOCYTES # (AUTO) 0.6 /CMM (0.1-1.30); MONOCYTES % (AUTO) 4.5 % (2.0-12.0); NEUTROPHILS # (AUTO) 11.5 /CMM (1.8-8.9); NEUTROPHILS % (AUTO) 82.5 % (43.0-81.0); PLATELET COUNT (AUTO) 384 /CMM (150-450); RED BLOOD CELL COUNT(AUTO) 2.42 MIL/uL (4.5-6.0)
[2018-07-10 04:36] LABS: CALCIUM, SERUM 7.1 mg/dL (8.5-10.1); CARBON DIOXIDE 17 mmol/L (21-32); CHLORIDE 116 mmol/L (98-107); CREATININE 1.4 mg/dL (0.6-1.3); GLUCOSE 69 mg/dL (74-106); MAGNESIUM 1.9 mg/dL (1.8-2.4); PHOSPHORUS 3.9 mg/dL (2.5-4.9); POTASSIUM 4.4 mmol/L (3.5-5.1); SODIUM SERUM 143 mmol/L (136-145); UREA NITROGEN, BLOOD 51 mg/dL (7-18)
--- NOTE | 2018-07-10 05:00 | NUR ---
LACQUER COATER: REASSESS AFTER GIVEN ATIVAN AND WT STILL A LITTLE BIT OF RESTLESSNESS NOTED AND HR STILL IN THE 140s. WILL CONTINUE TO MONITOR.
[2018-07-10] MEDS: METRONIDAZOLE 500MG/ NS 100ML 500 MG in PREMIX 1 EA IV SCH ×3 (05:30→21:05)
--- NOTE | 2018-07-10 06:25 | NUR ---
SALES AND BUSINESS DEVELOPMENT MANAGER: BLOOD SUGAR CHECKED WT RESULT OF 55. REPEATED TEST WT RESULT OF 70. CONTINUE ON GLUCERNA 1.2 AT 60ML/HR AND TOLERATING WELL. NO S/S OF HYPOGLYCEMIA SUCH DIAPHORESIS. PT REMAINS DISORIENTED SINCE ADMISSION. STILL ST ON HIGH COURT JUSTICE WT HR IN THE 140s. SBP IS IN THE 90s AND NO NEED FOR NS 250ML BOLUS PER DAY SHIFT RN VERBAL REPORT (PER DR. MENDEZ TELEPHONE ORDER BUT NOT CARRIED OUT). WILL ENDORSE TO DAY SHIFT RN TO CLARIFY WT DIGITAL MANAGER. NO ACUTE DISTRESS. NO EVIDENCE OF DISCOMFORT. WILL CONTINUE TO MONITOR.
--- NOTE | 2018-07-10 08:00 | NUR ---
LOOP MACHINE OPERATOR: pt.is reactive by touch, on wrists restraints, can open eyes for seconds and jump up restless by touch, unable to follow commands, nonverbal, grimacing with activity 3-5/10, on R/ O2sat. over 95%, no SOB, wheezing, ST 120-150 long time, f/u construction engineer notes d/t septic shock and pain/anxiety by nurse report, Levophed is off, SBP over 90 now, I/O +830ml/24hrs, IVF: NS@125ml/h, GTF residual 5ml, keep HOB over 35, rectal tube: soft liquid stool, BS morning time 55-70, all skin/wounds care done by night nurse report. is in room, updated with all above, ordered: LR 500ml bolus
[2018-07-10] MEDS ORDERED: IV LR 500 ML IV ONE (08:10)
--- NOTE | 2018-07-10 09:00 | NUR ---
TANK CAR INSPECTOR: LR 500ml IV bolus given, evaluated EKG in the chart: ST confirmed
--- NOTE | 2018-07-10 09:00 | NUR ---
SUPERANNUATION CLERK: is in room, updated with pt.current condition, neurostatus, VS, ST 140-150, visit/orders, pressor off, IVF, I/O, O2sat., GTF, going to order resp.Tx
[2018-07-10] MEDS: MUPIROCIN OINT 2% 22 GM TUBE SCH ×2 (09:18→21:07)
[2018-07-10] MEDS: PANTOPRAZOLE 40 MG/PACK PACK GT SCH (09:23)
[2018-07-10] MEDS: ASPIRIN 81 MG TAB.CHEW GT SCH (09:24)
[2018-07-10] MEDS: GLIMEPIRIDE 1 MG TABLET PO SCH (09:24)
[2018-07-10] MEDS: QUETIAPINE FUMARATE 25 MG TABLET PO SCH ×3 (09:24→16:32)
[2018-07-10] MEDS: HYDROGEL DRESSING 90 GM TUBE TP SCH (11:46)
[2018-07-10] MEDS: IPRATROPIUM NEB FS 0.5 MG/2.5 ML AMPUL.NEB NEB SCH ×4 (12:00→23:16)
--- NOTE | 2018-07-10 12:19 | NUR ---
CT TECHNOLOGIST: pt.is restless now, grimacing like -02/16 pain evidence, slightly moaning, going for wounds care, will give Dilaudid dose
[2018-07-10] MEDS: methylPREDNISolone SOD SUCC 125 MG/2ML VIAL IV SCH ×2 (12:58→20:24)
--- NOTE | 2018-07-10 13:00 | NUR ---
ACCOUNT SUPPORT MANAGER: pt.is rest now, no grimacing, sleeps, O2sat. over 96%, RR 18-24, still ST 140, SBP over 90, Sondra IDNP is in room, updated with pt.status, VS, ST, orders, I/O, IVF, labs
--- NOTE | 2018-07-10 15:00 | NUR ---
MONORAIL CHARGER OPERATOR: pt.is rest now, O2sat. over 94%, ST 115-120 now, SBP is over 90, pt.family is in room, detailed updated with pt.status, VS, IVF, NGT, I/O, POC, MD visits
[2018-07-10] MEDS: ATORVASTATIN 10 MG TABLET GT SCH (17:36)
--- NOTE | 2018-07-10 18:21 | NUR ---
ICE HANDLER: ST 115-130 now, pt is rest, O2sat. over95%, rectal tube: no leak, all pM/skin care done
--- NOTE | 2018-07-10 19:30 | NUR ---
IMPREGNATOR AND DRIER: RECEIVED PT WT EYES CLOSED, ABLE TO OPEN EYES WITH TOUCH BUT UNABLE TO FOLLOW COMMANDS. ON R/A WT NO ACUTE DISTRESS. NO EVIDENCE OF DISCOMFORT. ST ON NURSE EXECUTIVE. AFEBRILE. SBP ABOVE 90. GTF TOLERATING WELL. TATA PICC LINE INFUSING NS AT 125ML/HR WT NO S/S OF COMPLICATIONS. F/C DRAINING TEA COLORED URINE TO GRAVITY. RECTAL TUBE IN PLACE WT BROWN LIQUID STOOLS. BILAT. SOFT WRIST RESTRAINTS IN PLACE FOR EPISODES OF TRYING TO REMOVE TUBINGS. SKIN AND CIRCULATION WNL. HOB AT 35 DEGREES. SAFETY PRECAUTION NOTED. WILL CONTINUE TO MONITOR.
[2018-07-10] MEDS: CEFTRIAXONE 1 G in IV D5W 50 ML IV SCH (20:17)
[2018-07-10] MEDS: IV NS 0.9% 250 ML IV PRN (21:05)
[2018-07-10] MEDS: QUETIAPINE FUMARATE 100 MG TABLET GT SCH (21:06)
[2018-07-10] MEDS: INSULIN GLARGINE, 100 UNIT/ML CARTRIDGE SQ SCH (21:23)
[2018-07-11] VITALS (34 sets, daily range): BP systolic 86–127; BP diastolic 57–102
[2018-07-11] MEDS: Z GUARD REMEDY 2 OZ OINT TP SCH ×2 (00:05→13:21)
[2018-07-11] MEDS: BLOOD SUGAR DIAGNOSTIC 1 EACH STRIP IN SCH ×5 (00:18→23:18)
[2018-07-11] MEDS: INSULIN REGULAR, HUMAN 100 UNIT/ML 3 ML VIAL SQ PRN ×5 (00:20→23:20)
[2018-07-11] MEDS: HYDROMORPHONE INJ 2 MG/ML DISP.SYRIN IV PRN (00:28)
--- NOTE | 2018-07-11 01:00 | NUR ---
MILLINERY DEPARTMENT MANAGER: DILAUDID GIVEN FOR PAIN M/B FACIAL GRIMACE, RESTLESSNESS AND ELEVATED HR (02/16) WT GOOD EFFECT (09/16- FLACC) AFTER ASSESSMENT. STILL NOTED WT ELEVATED HR IN THE 140s. WILL CONTINUE TO MONITOR.
[2018-07-11] MEDS: IV NS 0.9% 1,000 ML IV PRN ×2 (02:15→11:32)
[2018-07-11] MEDS: IPRATROPIUM NEB FS 0.5 MG/2.5 ML AMPUL.NEB NEB SCH ×5 (03:08→20:25)
[2018-07-11] MEDS: METRONIDAZOLE 500MG/ NS 100ML 500 MG in PREMIX 1 EA IV SCH ×3 (05:43→21:05)
[2018-07-11] MEDS: VANCOMYCIN HCL 125 MG/2.5 ML ORAL.SUSP PO SCH ×3 (05:43→17:24)
--- NOTE | 2018-07-11 06:00 | NUR ---
SYS DIR: HELD GTF D/T HIGH [id number]. STILL ST WT HR IN THE 130s-140s. WILL ENDORSE TO DAY SHIFT FOR CONTINUITY OF CARE. HOB AT 35 DEGREES AT ALL TIMES.
--- NOTE | 2018-07-11 08:00 | NUR ---
RN NOTES RECEIVED PATIENT IN BED, RESPONSIVE TO TACTILE STIMULI, NONVERBAL, ON ROOM AIR, NO SHORTNESS OF BREATH NOTED SATING WELL AT 97%, NO INDICATION OF PAIN NOTED, SINUS TACHY ON THE MONITOR HR AT 140'S AT THIS TIME, WITH TATA PICC LINE: IN PLACE AND INTACT, PATENT ON FLUSHING. WITH ONGOING IVF OF NS AT 125 CC/HR. GT IN PLACE AND INTACT, PATENT ON FLUSHING. BILATERAL SOFT RESTRAINTS IN PLACE, SKIN INTACT AND NO SKIN BREAKDOWN NOTED, GTF RECEIVED ON HOLD BUT RESTARTED AT THIS TIME DUE GASTRIC RESIDUAL AT 30CC, MEJIA CATHETER IN PLACE AND DRAINING TO TEA COLORED URINE, RECTAL TUBE DRAINING TO BROWN LIQUID STOOL, HOB ELEVATED AT 30-45, SAFETY MEASURES OBSERVED AND MAINTAINED, CALL LIGHT PLACE WITHIN REACH, PATIENT ON ISOLATION, WILL CONTINUE TO MONITOR
[2018-07-11 08:16] LABS: HEMATOCRIT 23 % (39-51); HEMOGLOBIN 7.4 g/dL (13.5-17.5); LYMPHOCYTES # (AUTO) 0.9 /CMM (0.8-4.8); LYMPHOCYTES % (AUTO) 8.3 % (20.0-44.0); MEAN CORPUSCULAR HGB CONC 32 g/dl (31.0-36.0); MEAN CORPUSCULAR VOLUME 98 fL (80-96); MONOCYTES # (AUTO) 0.1 /CMM (0.1-1.30); MONOCYTES % (AUTO) 1.2 % (2.0-12.0); NEUTROPHILS # (AUTO) 9.9 /CMM (1.8-8.9); NEUTROPHILS % (AUTO) 90.5 % (43.0-81.0); PLATELET COUNT (AUTO) 321 /CMM (150-450); RED BLOOD CELL COUNT(AUTO) 2.35 MIL/uL (4.5-6.0); WHITE BLOOD COUNT (AUTO) 10.9 K/uL (4.3-11.0)
[2018-07-11 08:27] LABS: CARBON DIOXIDE 16 mmol/L (21-32); CHLORIDE 118 mmol/L (98-107); CREATININE 1.5 mg/dL (0.6-1.3); GLUCOSE 204 mg/dL (74-106); PHOSPHORUS 4.5 mg/dL (2.5-4.9); POTASSIUM 4.9 mmol/L (3.5-5.1); SODIUM SERUM 143 mmol/L (136-145); UREA NITROGEN, BLOOD 48 mg/dL (7-18)
[2018-07-11] MEDS: ASPIRIN 81 MG TAB.CHEW GT SCH (09:39)
[2018-07-11] MEDS: PANTOPRAZOLE 40 MG/PACK PACK GT SCH (09:39)
[2018-07-11] MEDS: methylPREDNISolone SOD SUCC 125 MG/2ML VIAL IV SCH ×2 (09:40→17:25)
[2018-07-11] MEDS: GLIMEPIRIDE 1 MG TABLET PO SCH (09:40)
[2018-07-11] MEDS: QUETIAPINE FUMARATE 25 MG TABLET PO SCH ×3 (09:40→17:25)
[2018-07-11] MEDS: HYDROGEL DRESSING 90 GM TUBE TP SCH (09:40)
[2018-07-11] MEDS: MUPIROCIN OINT 2% 22 GM TUBE SCH ×2 (09:41→21:04)
--- NOTE | 2018-07-11 16:00 | NUR ---
RN NOTES ENDORSED PATIENT FOR CONTINUITY OF CARE TO GEE LOREDO. NO SIGNIFICANT CHANGES WITHIN THE SHIFT, PATIENT NOT ON ANY FORM OF DISTRESS, BREATHING UNLABORED, STILL TACHYCARDIC HR AT 140. ALL NURSING NEEDS ATTENDED. HOB KEPT ELEVATED. SAFETY MEASURES IN PLACE AT ALL TIMES.CALL LIGHT WITHIN REACH
[2018-07-11] MEDS: ATORVASTATIN 10 MG TABLET GT SCH (17:24)
--- NOTE | 2018-07-11 18:29 | NUR ---
ARBORICULTURE INSTRUCTOR NOTE RCVD PT FROM [facility] AROUND 1630. PT ALERT TO SELF, SHOWING NO S/O DISTRESS DENIES PAIN. ST ON MONITOR, ON RA TOLERATING WELL. RECTAL TUBE IN PLACE DRAINING LIQUID BROWN STOOL, MEJIA TO GRAVITY DRAINING TEA COLORED URINE. IV C/D/I/PATENT. NO S/O INFILTRATION/PHLEBITIS OBSERVED, IVF INFUSING ORDERED. G-TUBE PLACEMENT VERIFIED BY ASPIRATION OF GASTRIC CONTENTS, 60 ML OF TUBE FEEDING OBTAINED, PT'S HEAD OF BED ELEVATED TO 30 DEGREES, PROTONIX ON BOARD. PT'S CARE WILL BE ENDORSED TO PEST CONTROLLER ASSISTANT RN FOR CONTINUITY OF CARE. BED IN LOW AND LOCKED POSITION. CALL LIGHT WITHIN REACH.
--- NOTE | 2018-07-11 19:30 | NUR ---
MATH AND SCIENCES DEPARTMENT CHAIR RCD PT AWAKE HOWEVER DOES NOT FOLLOW COMMANDS; GARBLED SPEECH. BL SOFT WRIST RESTRAINTS IN PLACE TO PREVENT PT FROM PULLING ON LINES OR TUBING. ST ON MONITOR; HR 140s AWARE. DIMINISHED LUNG SOUNDS ON ROOM AIR. JEVITY @ 60 ML/HR TO BE STOPPED AT 2000 IT ONLY RUNS x20 HRS.
[2018-07-11] MEDS: CEFTRIAXONE 1 G in IV D5W 50 ML IV SCH (20:00)
--- NOTE | 2018-07-11 20:10 | NUR ---
LEAD ELECTRICIAN DR JAQUEZ AT BEDSIDE EVALUATING PT; NO NEW ORDERS RECEIVED.
[2018-07-11] MEDS: QUETIAPINE FUMARATE 100 MG TABLET GT SCH (21:06)
[2018-07-11] MEDS: IV NS 0.9% 250 ML IV PRN (21:08)
[2018-07-11] MEDS: INSULIN GLARGINE, 100 UNIT/ML CARTRIDGE SQ SCH (23:20)
[2018-07-12] VITALS (26 sets, daily range): BP systolic 105–159; BP diastolic 42–104
[2018-07-12] MEDS: IPRATROPIUM NEB FS 0.5 MG/2.5 ML AMPUL.NEB NEB SCH ×7 (00:05→23:16)
[2018-07-12] MEDS: VANCOMYCIN HCL 125 MG/2.5 ML ORAL.SUSP PO SCH ×4 (00:25→17:17)
[2018-07-12] MEDS: GLUCERNA 1.2 1,000 ML BOTTLE GT SCH (00:25)
[2018-07-12] MEDS: Z GUARD REMEDY 2 OZ OINT TP SCH ×2 (00:26→12:28)
[2018-07-12] MEDS: IV NS 0.9% 1,000 ML IV PRN ×2 (01:58→14:06)
[2018-07-12 04:18] LABS: BASOPHILS % (AUTO) 0.1 % (0.0-2.0); HEMATOCRIT 22 % (39-51); HEMOGLOBIN 7.2 g/dL (13.5-17.5); LYMPHOCYTES % (AUTO) 7.8 % (20.0-44.0); MEAN CORPUSCULAR HGB CONC 32 g/dl (31.0-36.0); MEAN CORPUSCULAR VOLUME 96 fL (80-96); MONOCYTES # (AUTO) 0.3 /CMM (0.1-1.30); MONOCYTES % (AUTO) 2.4 % (2.0-12.0); NEUTROPHILS # (AUTO) 11.6 /CMM (1.8-8.9); NEUTROPHILS % (AUTO) 89.7 % (43.0-81.0); PLATELET COUNT (AUTO) 347 /CMM (150-450); RED BLOOD CELL COUNT(AUTO) 2.32 MIL/uL (4.5-6.0); WHITE BLOOD COUNT (AUTO) 12.9 K/uL (4.3-11.0)
[2018-07-12 04:39] LABS: CALCIUM, SERUM 7.4 mg/dL (8.5-10.1); CARBON DIOXIDE 18 mmol/L (21-32); CHLORIDE 117 mmol/L (98-107); CREATININE 1.4 mg/dL (0.6-1.3); GLUCOSE 158 mg/dL (74-106); MAGNESIUM 2.1 mg/dL (1.8-2.4); PHOSPHORUS 4.2 mg/dL (2.5-4.9); POTASSIUM 4.7 mmol/L (3.5-5.1); SODIUM SERUM 144 mmol/L (136-145)
[2018-07-12] MEDS: METRONIDAZOLE 500MG/ NS 100ML 500 MG in PREMIX 1 EA IV SCH ×3 (05:00→22:30)
[2018-07-12] MEDS: BLOOD SUGAR DIAGNOSTIC 1 EACH STRIP IN SCH ×4 (05:01→22:42)
[2018-07-12] MEDS: INSULIN REGULAR, HUMAN 100 UNIT/ML 3 ML VIAL SQ PRN ×2 (05:04→22:42)
[2018-07-12 05:11] LABS: UREA NITROGEN, BLOOD 51 mg/dL (7-18)
--- NOTE | 2018-07-12 07:00 | NUR ---
report received from Ingris FLYNN; remains on room air saturating 95%l bilateral soft wrist restraints retained secondary to attemots at pulling lines and tubungs despite instructions
[2018-07-12] MEDS: methylPREDNISolone SOD SUCC 125 MG/2ML VIAL IV SCH ×2 (08:32→17:17)
[2018-07-12] MEDS: PANTOPRAZOLE 40 MG/PACK PACK GT SCH (08:32)
[2018-07-12] MEDS: QUETIAPINE FUMARATE 25 MG TABLET PO SCH ×3 (08:32→17:17)
[2018-07-12] MEDS: GLIMEPIRIDE 1 MG TABLET PO SCH (08:33)
[2018-07-12] MEDS: ASPIRIN 81 MG TAB.CHEW GT SCH (08:33)
[2018-07-12] MEDS: MUPIROCIN OINT 2% 22 GM TUBE SCH ×2 (08:40→22:33)
[2018-07-12] MEDS: HYDROGEL DRESSING 90 GM TUBE TP SCH (08:40)
[2018-07-12] MEDS: IV NS 0.9% 250 ML IV PRN (14:06)
[2018-07-12] MEDS: ATORVASTATIN 10 MG TABLET GT SCH (17:18)
--- NOTE | 2018-07-12 18:45 | NUR ---
trasnferred to 104 via acls transport; report given at bedside to Noble FLYNN; all questions answered; no belongings
--- NOTE | 2018-07-12 18:50 | NUR ---
CORAL RN NOTE RCVD PT FROM ICU. PT NOT FOLLOWING ANY COMMANDS, SHOWING NO S/O DISTRESS DENIES PAIN. ST 140 ON MONITOR, ON RA TOLERATING WELL. RECTAL TUBE IN PLACE DRAINING LIQUID BROWN STOOL, MEJIA TO GRAVITY DRAINING TEA COLORED URINE. IV C/D/I/PATENT. NO S/O INFILTRATION/PHLEBITIS OBSERVED, IVF INFUSING ORDERED. G-TUBE ONGOING @60 ML/HR. , PT'S HEAD OF BED ELEVATED TO 30 DEGREES, PT'S CARE WILL BE ENDORSED TO BOWLING PIN REFINISHER RN FOR CONTINUITY OF CARE. BED IN LOW AND LOCKED POSITION. CALL LIGHT WITHIN REACH.ON BILATERAL SOFT RESTRAINTS.
--- NOTE | 2018-07-12 19:37 | NUR ---
CORAL RN NOTE ENDORSED TO PM NURSE FOR [facility].
[2018-07-12] MEDS: METOPROLOL TARTRATE 25 MG TABLET PO SCH (22:32)
[2018-07-12] MEDS: HYDROMORPHONE INJ 2 MG/ML DISP.SYRIN IV PRN (22:32)
[2018-07-12] MEDS: QUETIAPINE FUMARATE 100 MG TABLET GT SCH (22:33)
[2018-07-12] MEDS: INSULIN GLARGINE, 100 UNIT/ML CARTRIDGE SQ SCH (22:39)
[2018-07-13] VITALS: BP 115/85
[2018-07-13] MEDS: VANCOMYCIN HCL 125 MG/2.5 ML ORAL.SUSP PO SCH ×4 (00:40→17:37)
[2018-07-13] MEDS: Z GUARD REMEDY 2 OZ OINT TP SCH ×2 (00:42→18:46)
[2018-07-13] MEDS: GLUCERNA 1.2 1,000 ML BOTTLE GT SCH ×2 (01:03→21:33)
[2018-07-13] MEDS: IPRATROPIUM NEB FS 0.5 MG/2.5 ML AMPUL.NEB NEB SCH ×6 (03:17→23:22)
[2018-07-13 04:00] VITALS: BP 128/83
[2018-07-13] MEDS: METRONIDAZOLE 500MG/ NS 100ML 500 MG in PREMIX 1 EA IV SCH ×3 (05:38→21:31)
[2018-07-13] MEDS: BLOOD SUGAR DIAGNOSTIC 1 EACH STRIP IN SCH ×4 (05:39→23:30)
--- NOTE | 2018-07-13 07:30 | NUR ---
RN NOTES RECEIVED PATIENT IN BED WITH BREATHING NORMAL, EVEN AND UNLABORED. NO SOB NOTED. NO ACUTE DISTRESS NOTED. ON ROOM AIR. SATURATING WELL. AFEBRILE. GT IS PATENT AND INTACT. ON GT FEEDING GLUCERNA 1.2CAL @60CC/HR. TOLERATED WELL. NO RESIDUAL NOTED. TATA PICC LINE IS PATENT AND INTACT, RUNNING IVF PER ORDER. F/C IS PATENT AND INTACT, DRAINING WITH GRAVITY. KEPT CLEAN, DRY AND COMFORTABLE. ALL NEEDS ATTENDED. SAFETY MEASURE OBSERVED. CALL LIGHT WITH IN REACH. WILL CONT TO MONITOR.
[2018-07-13 08:00] VITALS: BP 119/89
[2018-07-13] MEDS: methylPREDNISolone SOD SUCC 125 MG/2ML VIAL IV SCH (09:50)
[2018-07-13] MEDS: PANTOPRAZOLE 40 MG/PACK PACK GT SCH (09:50)
[2018-07-13] MEDS: ASPIRIN 81 MG TAB.CHEW GT SCH (09:50)
[2018-07-13] MEDS: GLIMEPIRIDE 1 MG TABLET PO SCH (09:50)
[2018-07-13] MEDS: METOPROLOL TARTRATE 25 MG TABLET PO SCH ×2 (09:51→21:32)
[2018-07-13] MEDS: QUETIAPINE FUMARATE 25 MG TABLET PO SCH ×3 (09:54→17:36)
[2018-07-13] MEDS: HYDROGEL DRESSING 90 GM TUBE TP SCH (09:56)
[2018-07-13] MEDS: MUPIROCIN OINT 2% 22 GM TUBE SCH ×2 (10:00→21:00)
[2018-07-13] MEDS: IV NS 0.9% 1,000 ML IV PRN (10:04)
[2018-07-13 12:00] VITALS: BP 144/92
[2018-07-13 16:00] VITALS: BP_SYST 135; BP_DIAS 80; BP_DIAS 85
[2018-07-13] MEDS: ATORVASTATIN 10 MG TABLET GT SCH (17:36)
--- NOTE | 2018-07-13 18:43 | NUR ---
RN NOTES PATIENT BS=59. DEXTROSE 50% GIVEN,. RECHECKED UD=890. INSULIN PER SLIDING SCALE NOT GIVEN. WILL CONT TO MONITOR.
--- NOTE | 2018-07-13 18:59 | NUR ---
RN NOTES PATIENT ENDORSED TO NEXT SHIFT IN STABLE CONDITION FOR CONTINUITY OF CARE. NO SIGNIFICANT CHANGES NOTED. WILL CONT TO MONITOR.
[2018-07-13 20:00] VITALS: BP 147/92
--- NOTE | 2018-07-13 20:00 | NUR ---
RN MS INITIAL NOTES RECEIVED PATIENT IN BED, ON R/A, WELL AYLIN', BREATHING EVEN AND UNLABORED. NO SOB NOTED. NO ACUTE DISTRESS NOTED. SATURATING WELL. AFEBRILE. GT IS PATENT AND INTACT. ON GT FEEDING GLUCERNA 1.2CAL @60CC/HR. TOLERATED WELL. NO RESIDUAL NOTED. TATA PICC LINE IS PATENT AND INTACT, RUNNING IVF PER ORDER. F/C IS PATENT AND INTACT, DRAINING WITH GRAVITY. KEPT CLEAN, DRY AND COMFORTABLE. ALL NEEDS ATTENDED. SAFETY MEASURE OBSERVED. CALL LIGHT WITH IN REACH. WILL CONT TO MONITOR.
[2018-07-13] MEDS: QUETIAPINE FUMARATE 100 MG TABLET GT SCH (21:31)
[2018-07-13] MEDS: INSULIN GLARGINE, 100 UNIT/ML CARTRIDGE SQ SCH (22:00)
--- NOTE | 2018-07-13 22:00 | NUR ---
JUDY MARCELINO4NDING LOW Addendum: 07/13/18 at 2334 by CHEYENNE BARNES RN TRENDING LOW 80'S
[2018-07-14] VITALS: BP_SYST 133; BP_DIAS 87; BP_DIAS 88
[2018-07-14] MEDS: VANCOMYCIN HCL 125 MG/2.5 ML ORAL.SUSP PO SCH ×4 (01:10→18:00)
[2018-07-14] MEDS: Z GUARD REMEDY 2 OZ OINT TP SCH ×2 (01:11→13:01)
[2018-07-14] MEDS: IPRATROPIUM NEB FS 0.5 MG/2.5 ML AMPUL.NEB NEB SCH ×6 (02:57→23:00)
[2018-07-14 04:00] VITALS: BP 112/80
[2018-07-14] MEDS: METRONIDAZOLE 500MG/ NS 100ML 500 MG in PREMIX 1 EA IV SCH ×3 (04:44→21:55)
[2018-07-14] MEDS: IV NS 0.9% 1,000 ML IV PRN ×2 (04:44→22:03)
[2018-07-14] MEDS: BLOOD SUGAR DIAGNOSTIC 1 EACH STRIP IN SCH ×3 (05:33→18:00)
[2018-07-14 06:10] LABS: EOSINOPHILS % (AUTO) 0.9 % (0.0-6.0); HEMATOCRIT 26 % (39-51); HEMOGLOBIN 8.1 g/dL (13.5-17.5); LYMPHOCYTES # (AUTO) 0.6 /CMM (0.8-4.8); LYMPHOCYTES % (AUTO) 3.7 % (20.0-44.0); MEAN CORPUSCULAR HGB CONC 31 g/dl (31.0-36.0); MEAN CORPUSCULAR VOLUME 98 fL (80-96); MONOCYTES # (AUTO) 0.2 /CMM (0.1-1.30); MONOCYTES % (AUTO) 1.6 % (2.0-12.0); NEUTROPHILS # (AUTO) 14.4 /CMM (1.8-8.9); NEUTROPHILS % (AUTO) 93.8 % (43.0-81.0); PLATELET COUNT (AUTO) 316 /CMM (150-450); RED BLOOD CELL COUNT(AUTO) 2.65 MIL/uL (4.5-6.0); WHITE BLOOD COUNT (AUTO) 15.4 K/uL (4.3-11.0)
[2018-07-14 06:18] LABS: CALCIUM, SERUM 7.1 mg/dL (8.5-10.1); CARBON DIOXIDE 21 mmol/L (21-32); CHLORIDE 120 mmol/L (98-107); CREATININE 1.3 mg/dL (0.6-1.3); GLUCOSE 102 mg/dL (74-106); SODIUM SERUM 146 mmol/L (136-145); UREA NITROGEN, BLOOD 49 mg/dL (7-18)
--- NOTE | 2018-07-14 06:22 | NUR ---
RN MS CLOSING NOTES ENDORSED PATIENT IN BED, ON R/A, WELL AYLIN', BREATHING EVEN AND UNLABORED. NO SOB NOTED. NO ACUTE DISTRESS NOTED. SATURATING WELL. AFEBRILE. GT IS PATENT AND INTACT. ON GT FEEDING GLUCERNA 1.2CAL @60CC/HR. TOLERATED WELL. NO RESIDUAL NOTED. TATA PICC LINE IS PATENT AND INTACT, RUNNING IVF PER ORDER. F/C IS PATENT AND INTACT, DRAINING WITH GRAVITY. KEPT CLEAN, DRY AND COMFORTABLE. ALL NEEDS ATTENDED. SAFETY MEASURE OBSERVED. CALL LIGHT WITH IN REACH. WILL ENDORSE TO AM RN FOR SADIQ..
[2018-07-14 08:00] VITALS: BP_SYST 128; BP_SYST 156; BP_DIAS 82; BP_DIAS 88
[2018-07-14 08:49] LABS: BAND % (MANUAL) 9 % (0.0-5.0); LYMPHOCYTES % (MANUAL) 3 % (16-48); NEUTROPHILS % (MANUAL) 88 (42-76)
[2018-07-14] MEDS: GLIMEPIRIDE 1 MG TABLET PO SCH (08:54)
[2018-07-14] MEDS: METOPROLOL TARTRATE 25 MG TABLET PO SCH ×2 (08:54→21:54)
[2018-07-14] MEDS: ASPIRIN 81 MG TAB.CHEW GT SCH (08:55)
[2018-07-14] MEDS: PANTOPRAZOLE 40 MG/PACK PACK GT SCH (08:55)
[2018-07-14] MEDS: methylPREDNISolone SOD SUCC 125 MG/2ML VIAL IV SCH (08:55)
[2018-07-14] MEDS: MUPIROCIN OINT 2% 22 GM TUBE SCH ×2 (08:55→22:35)
[2018-07-14] MEDS: HYDROGEL DRESSING 90 GM TUBE TP SCH (08:56)
[2018-07-14] MEDS: QUETIAPINE FUMARATE 25 MG TABLET PO SCH ×3 (08:57→17:00)
[2018-07-14 12:00] VITALS: BP 142/88
[2018-07-14] MEDS ORDERED: PRED20TA PO (12:48)
[2018-07-14] MEDS ORDERED: VANC250C12 PO (12:48)
[2018-07-14 16:00] VITALS: BP_SYST 132; BP_SYST 133; BP_DIAS 68; BP_DIAS 80
[2018-07-14] MEDS: ATORVASTATIN 10 MG TABLET GT SCH (18:00)
--- NOTE | 2018-07-14 18:56 | NUR ---
RN MS CLOSING NOTES ENDORSED PATIENT IN BED, BREATHING EVEN AND UNLABORED. NO SOB NOTED. NO ACUTE DISTRESS NOTED. SATURATING WELL. AFEBRILE. GT IS PATENT AND INTACT. ON GT FEEDING GLUCERNA 1.2CAL @60CC/HR. TOLERATED WELL. NO RESIDUAL NOTED. TATA PICC LINE IS PATENT AND INTACT, RUNNING IVF PER ORDER. F/C IS PATENT AND INTACT, DRAINING WITH GRAVITY. KEPT CLEAN, DRY AND COMFORTABLE. ALL NEEDS ATTENDED. SAFETY MEASURE OBSERVED. CALL LIGHT WITH IN REACH. WILL ENDORSE TO NEXT SHIFT NURSE.
--- NOTE | 2018-07-14 19:15 | NUR ---
MS RN INITIAL NOTES RECEIVED PT IN BED, ALERT. ON ROOM AIR, NO SOB NOTED. WITH INTACT AND IN PLACED F/C DRAINING TEA-COLORED URINE. WITH INTACT AND IN PLACED RECTAL TUBE. WITH ONGOING IVF NS AT 75 ML/HR INFUSING WELL ON TATA PICC LINE. GTUBE INTACT AND PATENT, WITH ONGOING GTF GLUCERNA AT 60ML/HR, TOLERATING WELL. HOB ELEVATED. SAFETY MEASURES IN PLACED. CALL LIGHT WITHIN EASY REACH. WILL CONT TO MONITOR PER AM SHIFT RN, PT HAS D/C ORDER, AMBULANCE REFUSED TO TRANSPORT PT TO [facility] DUE TO HEART RATE OF 119, PER ENDORSEMENT, DR ESTRADA WAS INFORMED. WILL FOLLOW UP
[2018-07-14 20:00] VITALS: BP 119/81
--- NOTE | 2018-07-14 20:00 | NUR ---
RN NOTES RECEIVED CALL FROM GEE PATEL OF [facility]. PER RN, OK TO TRANSFER PT TO SNF WITH HO=240. VS TAKEN: EM=104. CHARGE NURSE, ALENA MADE AWARE, DR ESTRADA NOTIFIED ABOUT CURRENT HR, AWAITING FOR ORDERS IF OK TO DC PT
--- NOTE | 2018-07-14 20:30 | NUR ---
RN NOTES NOTIFIED MOTOR GRADER OPERATOR, DR ESQUIVEL RE: CURRENT HEART RATE AND PT ON MS STATUS. ORDERED: PLACED PT ON TELE. INFORMED DR ESQUIVEL RE: HEART RHYTHM OF SINUS TACHY HR 120, ORDERED STAT CXR WITH STAT READING LOBO GUERIN MADE AWARE AND ACKNOWLEDGED
[2018-07-14] MEDS: QUETIAPINE FUMARATE 100 MG TABLET GT SCH (21:53)
[2018-07-14] MEDS: GLUCERNA 1.2 1,000 ML BOTTLE GT SCH (22:04)
[2018-07-14] MEDS: INSULIN GLARGINE, 100 UNIT/ML CARTRIDGE SQ SCH (22:30)
[2018-07-15] VITALS: BP 143/77
[2018-07-15] MEDS: VANCOMYCIN HCL 125 MG/2.5 ML ORAL.SUSP PO SCH ×3 (00:04→13:27)
[2018-07-15] MEDS: BLOOD SUGAR DIAGNOSTIC 1 EACH STRIP IN SCH ×3 (00:09→13:27)
[2018-07-15] MEDS: INSULIN REGULAR, HUMAN 100 UNIT/ML 3 ML VIAL SQ PRN ×2 (00:14→05:41)
[2018-07-15] MEDS: Z GUARD REMEDY 2 OZ OINT TP SCH ×2 (00:15→13:27)
[2018-07-15] MEDS: IPRATROPIUM NEB FS 0.5 MG/2.5 ML AMPUL.NEB NEB SCH ×3 (02:36→11:45)
[2018-07-15 04:00] VITALS: BP 139/79
[2018-07-15] MEDS: METRONIDAZOLE 500MG/ NS 100ML 500 MG in PREMIX 1 EA IV SCH ×2 (05:08→13:51)
--- NOTE | 2018-07-15 06:57 | NUR ---
RN NOTES PT IN STABLE CONDITION. NO ACUTE CHANGES THROUGHOUT SHIFT. ALL NEEDS ANTICIPATED. SAFETY MEASURES AND ASPIRATION PRECAUTION OBSERVED AT ALL TIMES. ENDORSED TO AM SHIFT FOR SADIQ
--- NOTE | 2018-07-15 07:35 | NUR ---
RN OPENING NOTES RECEIVED PT IN BED, ALERT, NONVERBAL. ON ROOM AIR, O2SAT WNL. NO ACUTE DISTRESS, NO SOB, NO S/S OF PAIN OR DISCOMFORT AT THIS TIME. MEJIA CATH IN PLACE DRAINING TEA-COLORED URINE. WITH INTACT AND IN PLACED RECTAL TUBE. WITH ONGOING IVF NS AT 75 ML/HR INFUSING WELL ON TATA PICC LINE. GTUBE INTACT AND PATENT, WITH ONGOING GTF GLUCERNA AT 60ML/HR, TOLERATING WELL. HOB ELEVATED. SAFETY MEASURES IN PLACED. BE IN LOW/LOCKED POSITION, SIDERAILS UP, CALL LIGHT WITHIN EASY REACH. WILL CONT TO MONITOR ACCORDINGLY.
[2018-07-15 08:00] VITALS: BP 126/84
[2018-07-15] MEDS: PANTOPRAZOLE 40 MG/PACK PACK GT SCH (09:31)
[2018-07-15] MEDS: METOPROLOL TARTRATE 25 MG TABLET PO SCH (09:31)
[2018-07-15] MEDS: GLIMEPIRIDE 1 MG TABLET PO SCH (09:31)
[2018-07-15] MEDS: methylPREDNISolone SOD SUCC 125 MG/2ML VIAL IV SCH (09:32)
[2018-07-15] MEDS: ASPIRIN 81 MG TAB.CHEW GT SCH (09:32)
[2018-07-15] MEDS: QUETIAPINE FUMARATE 25 MG TABLET PO SCH ×2 (09:32→13:51)
[2018-07-15] MEDS: HYDROGEL DRESSING 90 GM TUBE TP SCH (09:41)
[2018-07-15] MEDS: MUPIROCIN OINT 2% 22 GM TUBE SCH (09:50)
[2018-07-15] MEDS ORDERED: IV NS 0.9% 500 ML IV ONE (10:30)
[2018-07-15 12:00] VITALS: BP 110/85
--- NOTE | 2018-07-15 15:28 | NUR ---
discharged patient in stable condition picked up by ambulance crew. report given to GEE esquivel from [facility]. per sierra, bulmaro whittintgon np ordered to dc rectal tube. also spoke with bulmaro whittington np from [facility] and verified his orders to dc rectal tube upon patient's discharge. dc rectal tube, patient tolerated well, no complications noted. removed iv access PICC line, catheter intact and no missing pieces, applied pressure, no bleeding, no complications. removed name band. skin photos taken.
[2018-08-02] MEDS ORDERED: PANT40VI IV (11:16)
[2018-08-02] MEDS ORDERED: MERO1PIG IV (11:16)
== END 2018-07-15 15:25 | DRG 853 ==
LOC: ER 10:40 → ICU 13:32 → TELE-TD 07-12 18:40 → TELE1 07-12 23:28 → MEDSG1 07-13 15:30 → TELE1 07-14 21:30
PROC: 0JBR0ZZ Excision of Left Foot Subcutaneous Tissue and Fascia, Open Approach (ICD-10-PCS; principal; 2018-07-05)
PROC: 02HV33Z Insertion of Infusion Device into Superior Vena Cava, Percutaneous Approach (ICD-10-PCS; 2018-07-05)
PROC: B548ZZA Ultrasonography of Superior Vena Cava, Guidance (ICD-10-PCS; 2018-07-05)
DX: A41.9 Sepsis, unspecified organism (principal); L89.223 Pressure ulcer of left hip, stage 3; L89.623 Pressure ulcer of left heel, stage 3; L89.153 Pressure ulcer of sacral region, stage 3; E43 Unspecified severe protein-calorie malnutrition; N17.0 Acute kidney failure with tubular necrosis; R65.21 Severe sepsis with septic shock; R53.2 Functional quadriplegia; G93.40 Encephalopathy, unspecified; N39.0 Urinary tract infection, site not specified; E87.2 Acidosis; A04.72 Enterocolitis due to Clostridium difficile, not specified as recurrent; I47.1 Supraventricular tachycardia; I25.5 Ischemic cardiomyopathy; I12.9 Hypertensive chronic kidney disease with stage 1 through stage 4 chronic kidney disease, or unspecified chronic kidney disease; F03.90 Unspecified dementia, unspecified severity, without behavioral disturbance, psychotic disturbance, mood disturbance, and anxiety; E78.5 Hyperlipidemia, unspecified; Z79.4 Long term (current) use of insulin; Z79.82 Long term (current) use of aspirin; Z79.899 Other long term (current) drug therapy; Z79.84 Long term (current) use of oral hypoglycemic drugs; Z95.1 Presence of aortocoronary bypass graft; R13.10 Dysphagia, unspecified; N18.9 Chronic kidney disease, unspecified; Z93.1 Gastrostomy status; J44.9 Chronic obstructive pulmonary disease, unspecified; D47.3 Essential (hemorrhagic) thrombocythemia; L30.9 Dermatitis, unspecified; E87.5 Hyperkalemia; E11.22 Type 2 diabetes mellitus with diabetic chronic kidney disease; F41.9 Anxiety disorder, unspecified; I25.10 Atherosclerotic heart disease of native coronary artery without angina pectoris; F09 Unspecified mental disorder due to known physiological condition; D63.8 Anemia in other chronic diseases classified elsewhere; B96.1 Klebsiella pneumoniae [K. pneumoniae] as the cause of diseases classified elsewhere
CPT/HCPCS: 36415; 36569; 36600; 71045-TC; 80048-TC; 80061-TC; 80076-TC; 80202-TC; 81000-TC; 82272-TC; 82962-TC; 83605-TC; 83735-TC; 84100-TC; 84134-TC; 84443-TC; 84484-TC; 85025-TC; 85730-TC; 87040-TC; 87081-TC; 87086-TC; 87186-TC; A4216; A4624; A6248; A6253; A6403; C1751; G0378; J0456; J0696; J1170; J1815; J2060; J2185; J2270; J2930; J3370; J3490; J7030; J7040; J7042; J7050; J7060; J7120; Q9963

== ENCOUNTER 2018-07-25 10:42 | Inpatient (IN) | payer MEDICARE, OTHER ==
[~2018-07-25] VITALS: Ht 172.7 cm; Wt 61.7 kg
[~2018-07-25 10:42] MED LIST changes: +AMIN887L GT; -BUSP10TA35 PO; -INSU100I30 SQ; +INSU100V27 SQ; +INSU100V28 SQ; +INSU100V7 SQ; -LORA-259 PO; -METO-295 PEG; +NUT.237L30 GT; -NUT.237L45 GT; -OLAN2.5T3 PO; -OMEG1CAP PO; +PANT40SU2 GT; -PIPE3.3711 IV; +PRED20TA PO; +QUET100T GT; -QUET100T PO; -TRAZ-252 PO; +VANC250C12 PO; -VANC750F2 IV
--- NOTE | 2018-07-25 10:45 | NUR ---
PT SHARRI FROM [facility] FOR LOW H/H 7.1/23.8, PT IS AAOX1, NOT IN RESPIRATORY DISTRESS, KEPT RESTED AND COMFORTABLE.
--- NOTE | 2018-07-25 10:53 | NUR ---
PT LABS DRAWNED AND SENT TO LAB. AWAITING RESULTS.
[2018-07-25] MEDS ORDERED: IV NS 0.9% 1,000 ML BAG IV ONE ×2 (11:00→12:30)
[2018-07-25 11:04] LABS: BASOPHILS % (AUTO) 0.9 % (0.0-2.0); HEMATOCRIT 23 % (39-51); HEMOGLOBIN 7.6 g/dL (13.5-17.5); LYMPHOCYTES % (AUTO) 20.3 % (20.0-44.0); MEAN CORPUSCULAR HGB CONC 33 g/dl (31.0-36.0); MEAN CORPUSCULAR VOLUME 97 fL (80-96); MONOCYTES # (AUTO) 0.4 /CMM (0.1-1.30); MONOCYTES % (AUTO) 7.7 % (2.0-12.0); NEUTROPHILS # (AUTO) 3.5 /CMM (1.8-8.9); NEUTROPHILS % (AUTO) 67.1 % (43.0-81.0); PLATELET COUNT (AUTO) 229 /CMM (150-450); RED BLOOD CELL COUNT(AUTO) 2.37 MIL/uL (4.5-6.0); WHITE BLOOD COUNT (AUTO) 5.1 K/uL (4.3-11.0)
--- NOTE | 2018-07-25 11:05 | NUR ---
RADIOLOGY AT BEDSIDE FOR XRAY.
[2018-07-25 11:10] LABS: CALCIUM, SERUM 7.3 mg/dL (8.5-10.1); CARBON DIOXIDE 29 mmol/L (21-32); CHLORIDE 101 mmol/L (98-107); CREATININE 0.9 mg/dL (0.6-1.3); GLUCOSE 126 mg/dL (74-106); POTASSIUM 4.1 mmol/L (3.5-5.1); SODIUM SERUM 132 mmol/L (136-145); UREA NITROGEN, BLOOD 16 mg/dL (7-18)
[2018-07-25 11:15] LABS: ALANINE AMINOTRANSFERASE 62 U/L (12-78); ALKALINE PHOSPHATASE 108 U/L (46-116); ASPARTATE AMINOTRANSFERASE 66 U/L (15-37); BILIRUBIN,DIRECT 0.1 mg/dL (0.0-0.2); BILIRUBIN,TOTAL 0.4 mg/dL (0.2-1.0); LIPASE 108 U/L (73-393); TOTAL PROTEIN, SERUM 5.3 g/dL (6.4-8.2)
[2018-07-25 11:17] LABS: ALBUMIN 1.3 g/dL (3.4-5.0)
--- NOTE | 2018-07-25 11:40 | NUR ---
CALLED [facility] PAGED.
--- NOTE | 2018-07-25 11:42 | NUR ---
URINE SPECIMEN COLLECTED AND SENT TO LAB.
[2018-07-25 11:45] LABS: BILIRUBIN,URINE Negative (NEGATIVE); BLOOD, URINE Moderate Ery/uL (NEGATIVE); COLOR,URINE Yellow (YELLOW); KETONES,URINE Negative (NEGATIVE); LEUKOCYTE ESTERASE ,URINE Small (NEGATIVE); NITRITE, URINE Negative (NEGATIVE); PH,URINE 7.5 (5.0-8.0); PROTEIN,URINE Negative (NEGATIVE); UGLUCOSE Negative (NEGATIVE); UROBILINOGEN,URINE 0.2 EU/dL (0.2)
[2018-07-25 11:50] LABS: APPEARANCE,URINE Hazy (CLEAR)
[2018-07-25 11:54] LABS: RBC,URINE 20-50 /HPF (0-2); SQUAMOUS EPITHELIAL CELL,UR Few /HPF (None Seen)
[2018-07-25 11:55] LABS: BACTERIA,URINE Moderate /HPF (None Seen)
[2018-07-25 11:56] LABS: YEAST,URINE Few /HPF (None Seen)
[2018-07-25 11:57] LABS: WBC,URINE 20-50 /HPF (0-3)
[2018-07-25] MEDS ORDERED: VANCOMYCIN 1 GM in IV D5W 250 ML IV ONE (12:00)
[2018-07-25] MEDS ORDERED: CEFEPIME 1 GM in IV D5W 50 ML IV ONE (12:00)
--- NOTE | 2018-07-25 12:06 | NUR ---
CALLED FOR TELE BED
--- NOTE | 2018-07-25 12:15 | NUR ---
Pt is assigned to [facility] rm#: [id number], Dx: GI Bleed, and accepting: Dax Rutledge DNP
[2018-07-25] MEDS ORDERED: ACET325T53 GT (12:24)
[2018-07-25] MEDS ORDERED: NA P133E RC (12:24)
[2018-07-25] MEDS ORDERED: OMEG100037 GT (12:24)
[2018-07-25] MEDS ORDERED: TRAM50TA2 GT (12:24)
[2018-07-25] MEDS ORDERED: CALC-770 GT (12:24)
[2018-07-25] MEDS ORDERED: SACC250C GT (12:24)
[2018-07-25] MEDS ORDERED: FERR325T23 GT (12:24)
[2018-07-25] MEDS ORDERED: BISA10SU61 RC (12:24)
[2018-07-25] MEDS ORDERED: MAGN400O6 GT (12:24)
[2018-07-25] MEDS ORDERED: LORA1TAB GT (12:24)
[2018-07-25] MEDS ORDERED: IPRA0.2S9 IH (12:24)
--- NOTE | 2018-07-25 12:27 | NUR ---
REPORT GIVEN TO GEE WILEY FOR SADIQ.
[2018-07-25 12:30] VITALS: BP 123/62
[2018-07-25 13:15] VITALS: BP 123/62
--- NOTE | 2018-07-25 13:30 | NUR ---
RN NOTE PT ARRIVED FROM ER, ON BED, AGITATED, CONFUSED, ON NC 3.0 L/MIN OXYGEN SUPPLIED, IV PULLED OUT AND NEW IV PLACED IN LAC, 20 G, PT ON RESIDENCY PROGRAM COORDINATOR ST 118, PT VS STABLE, WILL CONTINUE TO MONITOR. PT ATTEMPTS TO PULL OUT TUBES. PT HAS MEJIA, DRAINING TO GRAVITY, G TUBE IN PLACE, ABDOMINAL BINDER IN PLACE TO PROTECT G TUBE. OBTAINED ORDER FOR CEE SOFT WRIST RESTRAINTS AND RESTRAINTS PUT ON THE PT'S WRISTS. CALL LIGHT WITHIN REACH, BED IN LOW AND LOCKED POSITION.
[2018-07-25] MEDS ORDERED: Z GUARD REMEDY 2 OZ OINT TP PRN (14:00)
[2018-07-25] MEDS ORDERED: MAGNESIUM HYDROXIDE 30 ML UDC PO PRN (14:00)
[2018-07-25] MEDS ORDERED: DEXTROSE 50%-WATER 50 ML DISP.SYRIN IV PRN (14:00)
[2018-07-25] MEDS ORDERED: ACETAMINOPHEN 650 MG/SUPP.RECT RC PRN (14:00)
[2018-07-25] MEDS ORDERED: ONDANSETRON HCL/PF 4 MG/2 ML VIAL IVP PRN (14:00)
[2018-07-25] MEDS ORDERED: FEE PK DOSING 1 MIN EA MC ONE (14:33)
[2018-07-25 15:44] LABS: MAGNESIUM 1.4 mg/dL (1.8-2.4); PHOSPHORUS 3.1 mg/dL (2.5-4.9)
[2018-07-25 16:00] VITALS: BP 111/61
[2018-07-25 16:26] LABS: OCCULT BLOOD STOOL POSITIVE (NEGATIVE)
[2018-07-25 16:34] VITALS: BP 111/61
[2018-07-25] MEDS: IV D5 LR 1,000 ML IV PRN (17:08)
[2018-07-25] MEDS: BLOOD SUGAR DIAGNOSTIC 1 EACH STRIP IN SCH ×2 (17:53→21:40)
--- NOTE | 2018-07-25 17:54 | NUR ---
RN NOTE ACCUCHECK BLOOD SUGAR CHECKED 133
[2018-07-25] MEDS: VANCOMYCIN HCL 125 MG/2.5 ML ORAL.SUSP PO SCH ×2 (18:03→23:35)
--- NOTE | 2018-07-25 19:00 | NUR ---
RN NOTE PT REMAINED STABLE, HAD SMEAR OF STOOL, MUCOID AND BLOOD TINGED, STOOL OB POSITIVE, ACCORDING TO PT CHART PT HAD C DIFF IN THE RECENT PAST AND BEEN TREATED WITH VANCOMYCIN VIA G TUBE TO CONTINUE THROUGH 07/30/18. AWARE AND OKAYED TO CONTINUE. SAFETY MEASURES IN PLACE, WILL ENDORSE TO MARRIAGE COUNSELOR MINISTER.
--- NOTE | 2018-07-25 19:10 | NUR ---
TELE/RN INITIAL NOTES RECEIVED PT IN BED, ALERT, APPEARS CONFUSED. SINUS TACHY HR 110S ON TELEMONITOR. ON 3L O2 VIA NC, NO SOB NOTED. GT CLAMPED, INTACT AND IN PLACED. F/C INTACT AND IN PLACED. WITH ONGOING IVF OF D5LR AT 100 ML/HR INFUSING WELL ON LHAND G20 IV. WITH INTACT AND PATENT (L) AC G20 HEPLOCK. WITH BILATERAL SOFT WRIST RESTRAINT, SKIN AND CIRCULATION CHECKED. HOB ELEVATED. SAFETY MEASURES IN PLACED. CALL LIGHT WITHIN EASY REACH. WILL CONT TO MONITOR. WILL KEEP ON NPO ORDERED AND CONTACT ISOLATION
[2018-07-25 20:00] VITALS: BP 124/70
[2018-07-25] MEDS: CEFEPIME 2 GM in IV NS 0.9% 50 ML IV SCH (20:44)
[2018-07-25] MEDS: PANTOPRAZOLE 40 MG VIAL IV SCH (20:44)
[2018-07-25] MEDS: INSULIN REGULAR, HUMAN 100 UNIT/ML 3 ML VIAL SQ PRN (21:49)
[2018-07-25] MEDS: VANCOMYCIN 1.25 GM in IV D5W 500 ML IV SCH (23:35)
[2018-07-26] VITALS (10 sets, daily range): BP systolic 99–129; BP diastolic 55–75
[2018-07-26] MEDS: CEFEPIME 2 GM in IV NS 0.9% 50 ML IV SCH ×3 (04:15→20:27)
[2018-07-26] MEDS: VANCOMYCIN HCL 125 MG/2.5 ML ORAL.SUSP PO SCH ×4 (05:31→23:59)
[2018-07-26] MEDS: IV D5 LR 1,000 ML IV PRN (06:43)
--- NOTE | 2018-07-26 07:00 | NUR ---
RN NOTES PT IN STABLE CONDITION. NO ACUTE CHANGES THROUGHOUT SHIFT. ALL NEEDS ANTICIPATED. SAFETY MEASURES AND ASPIRATION PRECAUTION OBSERVED AT ALL TIMES. ENDORSED TO AM SHIFT RN FOR SADIQ
[2018-07-26 07:29] LABS: BASOPHILS % (AUTO) 0.5 % (0.0-2.0); EOSINOPHILS % (AUTO) 3.9 % (0.0-6.0); LYMPHOCYTES % (AUTO) 21.2 % (20.0-44.0); MEAN CORPUSCULAR HGB CONC 33 g/dl (31.0-36.0); MEAN CORPUSCULAR VOLUME 98 fL (80-96); MONOCYTES # (AUTO) 0.6 /CMM (0.1-1.30); MONOCYTES % (AUTO) 11.9 % (2.0-12.0); NEUTROPHILS % (AUTO) 62.5 % (43.0-81.0); PLATELET COUNT (AUTO) 211 /CMM (150-450); RED BLOOD CELL COUNT(AUTO) 2.01 MIL/uL (4.5-6.0); WHITE BLOOD COUNT (AUTO) 4.8 K/uL (4.3-11.0)
[2018-07-26 07:38] LABS: HEMATOCRIT 20 % (39-51); HEMOGLOBIN 6.5 g/dL (13.5-17.5)
[2018-07-26 07:39] LABS: CALCIUM, SERUM 7.1 mg/dL (8.5-10.1); CARBON DIOXIDE 25 mmol/L (21-32); CHLORIDE 103 mmol/L (98-107); CREATININE 0.9 mg/dL (0.6-1.3); GLUCOSE 185 mg/dL (74-106); PHOSPHORUS 2.4 mg/dL (2.5-4.9); POTASSIUM 3.6 mmol/L (3.5-5.1); SODIUM SERUM 135 mmol/L (136-145); UREA NITROGEN, BLOOD 10 mg/dL (7-18)
[2018-07-26 07:44] LABS: CHOLESTEROL 90 mg/dL (<200); HDL CHOLESTEROL 25 mg/dL (40-60); LDL 55 mg/dL (0-99); THYROID STIMULATING HORMONE 6.405 uIU/mL (0.358-3.74); TRIGLYCERIDES 108 mg/dL (30-150)
[2018-07-26 07:50] LABS: MAGNESIUM 1.2 mg/dL (1.8-2.4)
--- NOTE | 2018-07-26 07:51 | NUR ---
NEON PUMPER OPENING NOTES RECEIVED BEDSIDE REPORT PATIENT AWAKE IN BED WITH FLAT AFFECT A/O X1 NO SIGNS OR SYMPTOMS OF RESPIRATORY DISTRESS ON 3 LTRS NASAL CANNULA NO ACUTE PAIN NOTED. ON MONITOR ST 105. BILATERAL SOFT WRIST RESTRAINTS CHECKED FOR CIRCULATION ORDER TO PREVENT FROM PULLING AT LINE AND INTERFERING WITH MEDICAL CARE.IVF TO (L) HAND # 20 GAUGE D5LR @100ML/HR (L)AC #20 GAUGE SALINE LOCK. NPO WITH GT CLAMPED. CRITACAL LABS HGB 6.5 HCT 20 MAG 1.2 WILL F/U WITH DOCTOR. ALL SAFETY PRECAUTIONS IN PLACE BED IN LOW POSITION CALL LIGHT WITHIN REACH . WILL CONT TO MONITOR
[2018-07-26] MEDS: BLOOD SUGAR DIAGNOSTIC 1 EACH STRIP IN SCH ×4 (08:47→22:25)
[2018-07-26] MEDS: PANTOPRAZOLE 40 MG VIAL IV SCH ×2 (08:50→20:27)
[2018-07-26 09:08] LABS: EOSINOPHILS % (MANUAL) 4 % (0-4); LYMPHOCYTES % (MANUAL) 21 % (16-48); MONOCYTES % (MANUAL) 6 % (0-11.0); NEUTROPHILS % (MANUAL) 69 (42-76)
[2018-07-26] MEDS ORDERED: POTASSIUM CHLORIDE 20 MEQ POWDER PACKET GT ONE (09:30)
[2018-07-26] MEDS: Magnesium 1GM/D5W 100ML PREMIX 100 ML IV SCH ×4 (09:53→13:13)
[2018-07-26] MEDS: CARVEDILOL 3.125 MG TABLET PO SCH ×2 (10:50→20:28)
[2018-07-26] MEDS ORDERED: SILVER NITRATE APPLICATOR 1 EA BOX TP ONE (12:00)
[2018-07-26] MEDS ORDERED: LIDOCAINE 2%-EPI 1:100,000 30 ML VIAL TP ONE (12:00)
[2018-07-26] MEDS: INSULIN REGULAR, HUMAN 100 UNIT/ML 3 ML VIAL SQ PRN (13:10)
[2018-07-26] MEDS: VANCOMYCIN 1.25 GM in IV D5W 500 ML IV SCH ×2 (13:11→23:59)
[2018-07-26] MEDS ORDERED: NEUTRA PHOS 1 POWD.PACKET GT ONE (14:00)
--- NOTE | 2018-07-26 17:10 | NUR ---
Patient resides at [facility] [phone] . He requires assistance with adl's. Current dc plan is to return to SNF when discharge. Addendum: 07/26/18 at 1710 by TAWNY MCNEAL RN Amended: Links added.
--- NOTE | 2018-07-26 19:33 | NUR ---
IN FLIGHT REFUELING CRAFTSMAN NOTES BEDSIDE REPORT GIVEN PATIENT SATBLE THROUGHOUT DAY. TELEPHONE CONSENT FROM FOR WOUND DEBRIDEMENT. AWAITING TYPE AND CROSS MATCH FOR BLOOD TRANSFUSION. WILL ENDORSE SADIQ
--- NOTE | 2018-07-26 19:56 | NUR ---
LOG CHAIN FEEDER NOTES RECEIVED PT IN BED, SLEEPING, EASILY AROUSED TO TOUCH, BREATHING EVEN AND UNLABORED, NO SOB PRESENT. IN NO APPARENT DISTRESS OR DISCOMFORT AT THE MOMENT. IV ACCESS ON THE L AC AND L WRIST G20 WITH D5LR @50ML/HR. F/C IN PLACE AND DRAINING. HGB OF 6.5 SINCE THIS MORNING, ORDERED BLOOD FROM THE BLOOD BLANK STAT, AWAITING PRODUCTS TO BE READY TO ADMINISTER. BED IN LOWEST LOCKED POSITION, CALL LIGHT WITHIN REACH AT ALL TIMES, WILL CONTINUE TO MONITOR.
[2018-07-27] VITALS (14 sets, daily range): BP systolic 100–131; BP diastolic 54–80
[2018-07-27] MEDS: IV D5 LR 1,000 ML IV PRN (05:15)
[2018-07-27] MEDS: CEFEPIME 2 GM in IV NS 0.9% 50 ML IV SCH ×3 (05:15→21:18)
[2018-07-27] MEDS: VANCOMYCIN HCL 125 MG/2.5 ML ORAL.SUSP PO SCH ×3 (05:38→18:17)
[2018-07-27] MEDS: INSULIN REGULAR, HUMAN 100 UNIT/ML 3 ML VIAL SQ PRN (06:27)
[2018-07-27] MEDS: BLOOD SUGAR DIAGNOSTIC 1 EACH STRIP IN SCH ×4 (06:28→21:35)
--- NOTE | 2018-07-27 06:35 | NUR ---
SUPERVISOR TWISTING DEPARTMENT CLOSING NOTES PT REMAINS IN BED, AWAKE, ALERT ORIENTEDX1, BREATHING EVEN AND UNLABORED ON 2L O2NL, NO SOB NOTED. NO COMPLAINT OF PAIN OR DISCOMFORT AT THIS TIME. IV ACCESS ON THE RIGHT AC AND RIGHT HAND BOTH 20G WITH D5LR @50ML.HR. GTUBE IN PLACE WITH ABDOMINAL BINDER FOR PROTECTION. SOFT WRIST RESTRAINTS IN PLACE. F/C IN PLACE, OUTPUT OF 2800ML. BED IN LOWEST LOCKED POSITION, CALL LIGHT WITHIN REACH AT ALL TIME. WILL ENDORSE DO DAY NURSE FOR SADIQ
[2018-07-27 06:53] LABS: CALCIUM, SERUM 7.1 mg/dL (8.5-10.1); CARBON DIOXIDE 26 mmol/L (21-32); CHLORIDE 104 mmol/L (98-107); CREATININE 0.9 mg/dL (0.6-1.3); GLUCOSE 164 mg/dL (74-106); MAGNESIUM 1.8 mg/dL (1.8-2.4); POTASSIUM 3.4 mmol/L (3.5-5.1); SODIUM SERUM 136 mmol/L (136-145); UREA NITROGEN, BLOOD 7 mg/dL (7-18)
--- NOTE | 2018-07-27 07:00 | NUR ---
WALLCOVERING TEXTURER NOTES RECEIVED PT IN BED, A/OX1. FAMILY AT BEDSIDE. ON 3L NC TOLERATING WELL. O2 SAT WNL. ISOLATION PRECAUTIONS MAINTAINED. ON TELE SR 81. PT HAS MEJIA DRAINING YELLOW URINE. PT IS NPO ON GTUBE. IV FLUIDS RUNNING VIA PATENT IV SITES. NO S/SX OF INFECTION. SOFT RESTRAINTS MAINTAINED. PT WAS PULLING OUT GTUBE. LEFT HEEL FLOATED. BED IN LOCKED/LOWEST POSITION. CALL LIGHT IN REACH. WILL CONT TO MONITOR.
[2018-07-27] MEDS: PANTOPRAZOLE 40 MG VIAL IV SCH ×2 (08:21→21:18)
[2018-07-27] MEDS: CARVEDILOL 3.125 MG TABLET PO SCH ×2 (08:22→21:00)
[2018-07-27] MEDS ORDERED: POTASSIUM CHLORIDE 20 MEQ POWDER PACKET GT ONE (09:00)
[2018-07-27] MEDS: CADEXOMER IODINE 40 GM TUBE TP SCH (09:00)
--- NOTE | 2018-07-27 10:20 | NUR ---
WOUND CARE CONSULT WOUND CARE RECEIVED CONSULT FOR SACRAL AND LEFT HEEL WOUNDS. WOUND CARE WILL DEFER CONSULT AND ALL TREATMENT PLANS TO PLASTIC SURGICAL TEAM INCLUDING DPM DR JARA THEY ARE CURRENTLY FOLLOWING THIS PATIENT. PATIENT WITH GABBY AT 12, ALL PRESSURE ULCER PREVENTION MEASURES ARE NOTED TO BE IN PLACE AT THIS TIME. WILL SEE PRN.
[2018-07-27 11:16] LABS: BASOPHILS % (AUTO) 0.7 % (0.0-2.0); EOSINOPHILS % (AUTO) 11.5 % (0.0-6.0); HEMATOCRIT 23 % (39-51); HEMOGLOBIN 7.6 g/dL (13.5-17.5); LYMPHOCYTES # (AUTO) 1.1 /CMM (0.8-4.8); LYMPHOCYTES % (AUTO) 22.7 % (20.0-44.0); MEAN CORPUSCULAR HGB CONC 33 g/dl (31.0-36.0); MEAN CORPUSCULAR VOLUME 96 fL (80-96); MONOCYTES # (AUTO) 0.6 /CMM (0.1-1.30); MONOCYTES % (AUTO) 12.2 % (2.0-12.0); NEUTROPHILS # (AUTO) 2.6 /CMM (1.8-8.9); NEUTROPHILS % (AUTO) 52.9 % (43.0-81.0); PLATELET COUNT (AUTO) 211 /CMM (150-450); WHITE BLOOD COUNT (AUTO) 4.8 K/uL (4.3-11.0)
[2018-07-27] MEDS: VANCOMYCIN 1.25 GM in IV D5W 500 ML IV SCH (12:22)
--- NOTE | 2018-07-27 12:27 | NUR ---
MASON TENDER NOTES CALLED PHARMACY, ORAL VANCOCIN NOT AVAILABLE. WILL GIVE WHEN AVAILABLE.
[2018-07-27] MEDS ORDERED: POTASSIUM PHOSPHATE MM 7.5 MMOL in IV D5W 100 ML IV SCH (13:00)
--- NOTE | 2018-07-27 18:40 | NUR ---
CUSTOMER AGENT NOTES NOTIFIED TRAVIS NEW AND DR HUGHES ABOUT PT'S 1 BLOODY BM TODAY. NO NEW ORDERS GIVEN AT THIS TIME
--- NOTE | 2018-07-27 19:00 | NUR ---
PETROGRAPHER NOTES REPORT GIVEN TO PM NURSE FOR SADIQ. PT IS STILL CONFUSED. HAD 1 BLOODY BM TODAY MD AWARE. PT IS NOT ON CONT IV FLUIDS. D/C'D TODAY. PT IS TOLERATING NC 3L WELL. BED IN LOCKED/LOWEST POSITION. CALL LIGHT IN REACH. ALL NEEDS ATTENDED TO.
--- NOTE | 2018-07-27 19:45 | NUR ---
NAVAL GUNFIRE LIAISON OFFICER NOTE: RECEIVED PT ON BED AWAKE WITH NO APPARENT DISTRESS NOTED. NO FACIAL GRIMACING OR ANY SIGNS OF PAIN NOTED. ON 3LPM NASAL CANNULA, NO SOB NOTED. SATURATING WELL. ON TELE MONITOR SINUS TACHY HR 105BPM. MEJIA CATH INTACT AND PATENT WITH CLEAR YELLOW URINE DRAINING. KEPT CLEAN, DRY AND COMFORTABLE. SAFETY AND FALL PRECAUTIONS OBSERVED AND MAINTAINED. WILL CONTINUE TO MONITOR PT.
[2018-07-28] VITALS: BP 112/61
[2018-07-28] MEDS: VANCOMYCIN 1 GM in IV D5W 250 ML IV SCH ×2 (00:19→12:00)
[2018-07-28 04:00] VITALS: BP 113/71
[2018-07-28] MEDS: CEFEPIME 2 GM in IV NS 0.9% 50 ML IV SCH ×3 (04:36→22:11)
[2018-07-28] MEDS: VANCOMYCIN HCL 125 MG/2.5 ML ORAL.SUSP PO SCH ×4 (05:25→17:37)
--- NOTE | 2018-07-28 06:42 | NUR ---
BOATSWAIN MATE NOTE: NO CHANGES NOTED THROUGHOUT THE SHIFT. NO FACIAL GRIMACING OR ANY SIGNS OF PAIN NOTED. ON 3LPM NASAL CANNULA, NO SOB NOTED. ON TELE MONITOR SINUS RHYTHM 97BPM. MEJIA CATH INTACT AND PATENT, DRAINED 3500CC OF URINE OUTPUT. KEPT CLEAN, DRY AND COMFORTABLE. SAFETY AND FALL PRECAUTIONS OBSERVED AND MAINTAINED. WILL ENDORSE TO DAY SHIFT RN FOR CONTINUITY OF CARE.
--- NOTE | 2018-07-28 07:00 | NUR ---
DIVE SUPERINTENDENT NOTES PT IN BED, RESTLESS. A/OX1 CONFUSED. PT ON 3L NC. O2 SAT WNL. PT IS NPO. GTUBE INTACT/FLUSHED/PATENT. IV SITE LAC PATENT/FLUSHED. WILL REMOVE L HAND IV-INFILTRATED. PT IS ON SOFT RESTRAINTS-BOTH WRISTS PT IS PULLING ON LINES AND GTUBE. ATTEMPTED TO REORIENT PT. PT STILL CONFUSED. WILL CONT TO MONITOR.
[2018-07-28] MEDS: BLOOD SUGAR DIAGNOSTIC 1 EACH STRIP IN SCH ×4 (07:30→22:09)
[2018-07-28 07:46] LABS: CALCIUM, SERUM 7.5 mg/dL (8.5-10.1); CARBON DIOXIDE 28 mmol/L (21-32); CHLORIDE 106 mmol/L (98-107); CREATININE 0.9 mg/dL (0.6-1.3); GLUCOSE 119 mg/dL (74-106); POTASSIUM 3.6 mmol/L (3.5-5.1); SODIUM SERUM 139 mmol/L (136-145); UREA NITROGEN, BLOOD 7 mg/dL (7-18)
[2018-07-28 08:00] VITALS: BP 128/71
[2018-07-28] MEDS: CADEXOMER IODINE 40 GM TUBE TP SCH (09:00)
[2018-07-28] MEDS: DAKINS QUARTER STRENGTH (0.125%) 480 ML BOTTLE TOP SCH (09:00)
[2018-07-28] MEDS: PANTOPRAZOLE 40 MG VIAL IV SCH ×2 (09:24→22:09)
[2018-07-28] MEDS: CARVEDILOL 3.125 MG TABLET PO SCH ×2 (09:25→22:10)
[2018-07-28 09:51] LABS: BASOPHILS % (AUTO) 0.7 % (0.0-2.0); EOSINOPHILS % (AUTO) 13.9 % (0.0-6.0); HEMATOCRIT 24 % (39-51); HEMOGLOBIN 7.9 g/dL (13.5-17.5); LYMPHOCYTES # (AUTO) 1.1 /CMM (0.8-4.8); LYMPHOCYTES % (AUTO) 28.5 % (20.0-44.0); MEAN CORPUSCULAR HGB CONC 33 g/dl (31.0-36.0); MEAN CORPUSCULAR VOLUME 96 fL (80-96); MONOCYTES # (AUTO) 0.5 /CMM (0.1-1.30); MONOCYTES % (AUTO) 13.1 % (2.0-12.0); NEUTROPHILS # (AUTO) 1.7 /CMM (1.8-8.9); NEUTROPHILS % (AUTO) 43.8 % (43.0-81.0); PLATELET COUNT (AUTO) 240 /CMM (150-450); RED BLOOD CELL COUNT(AUTO) 2.49 MIL/uL (4.5-6.0)
[2018-07-28 12:00] VITALS: BP_SYST 124; BP_SYST 129; BP_DIAS 93
[2018-07-28] MEDS ORDERED: IV D5/0.45 NACL 1,000 ML IV ONE (12:30)
[2018-07-28 16:00] VITALS: BP 145/65
--- NOTE | 2018-07-28 18:00 | NUR ---
OVERSEER KOSHER KITCHEN NOTES DR VELIZ CONTACTED REGARDING MED RECON. DR HSU.
--- NOTE | 2018-07-28 18:56 | NUR ---
EDITORIAL CARTOONIST NOTES REPORT GIVEN TO PM SHIFT FOR SADIQ. PT STABLE. CONSENT NEEDS TO BE SIGNED FOR EGD/COLONOSCOPY FOR MONDAY. PT MAINTAINED NPO STATUS. RESTRAINTS IN PLACE. PT STILL CONFUSED. ALL NEEDS ATTENDED TO. CALL LIGHT IN REACH.
--- NOTE | 2018-07-28 19:51 | NUR ---
TELE-1/GAUGE AND INSTRUMENT INSPECTOR REPORT TO GALINA FLYNN FOR CONT OF CARE.
[2018-07-28 20:00] VITALS: BP 141/95
--- NOTE | 2018-07-28 20:00 | NUR ---
RN INITIAL NOTE: RECEIVED PT ON BED AWAKE WITH NO APPARENT DISTRESS NOTED. ON 3LPM NASAL CANNULA, NO SOB NOTED. SATURATING WELL. ON TELE MONITOR SR. MEJIA CATH INTACT AND PATENT WITH CLEAR YELLOW URINE DRAINING. KEPT CLEAN, DRY AND COMFORTABLE. SAFETY AND FALL PRECAUTIONS OBSERVED AND MAINTAINED. WILL CONTINUE TO MONITOR PT.
[2018-07-29] VITALS (7 sets, daily range): BP systolic 121–152; BP diastolic 76–96
[2018-07-29] MEDS: VANCOMYCIN HCL 125 MG/2.5 ML ORAL.SUSP PO SCH ×5 (00:14→23:06)
[2018-07-29] MEDS: CEFEPIME 2 GM in IV NS 0.9% 50 ML IV SCH ×2 (04:56→13:05)
--- NOTE | 2018-07-29 06:51 | NUR ---
RN CLOSING NOTES PT REMAINS IN BED, AWAKE, ALERT ORIENTEDX1, BREATHING EVEN AND UNLABORED ON 2L O2NL, NO SOB NOTED. NO COMPLAINT OF PAIN OR DISCOMFORT AT THIS TIME. IV ACCESS ON THE RIGHT AC AND RIGHT HAND BOTH 20G. GTUBE IN PLACE WITH ABDOMINAL BINDER FOR PROTECTION. SOFT WRIST RESTRAINTS IN PLACE FOR SAFETY . F/C IN PLACE. BED IN LOWEST LOCKED POSITION, CALL LIGHT WITHIN REACH AT ALL TIME. WILL ENDORSE TO AM NURSE FOR SADIQ
--- NOTE | 2018-07-29 08:00 | NUR ---
AIRPORT UTILITY WORKER NOTE RECEIVED PATIENT IN BED, ON 3L OF O2, NO SOB NOTED AT THIS TIME, PATIENT AWAKE BUT WITH CONFUSION, TRYING TO REMOVE ALL LINES ,WITH SOFT RESTRAIN, ON TELE MONITOR SR , WITH MEJIA CATH TO GRAVITY WITH YELLOW COLOR URINE , ON NPO AT THIS TIME PER DX , LT AC AND LT HAND IV HL INTACT , BED IN LOWEST AND LOCKED POSITION , CALL LIGHT WITHIN REACH , PLAN OF CARE DISCUSSED WITH PATIENT , WILL CONT TO MONITOR CLOSELY
[2018-07-29 08:04] LABS: EOSINOPHILS % (AUTO) 11.1 % (0.0-6.0); HEMATOCRIT 28 % (39-51); HEMOGLOBIN 9.4 g/dL (13.5-17.5); LYMPHOCYTES # (AUTO) 1.1 /CMM (0.8-4.8); LYMPHOCYTES % (AUTO) 28.2 % (20.0-44.0); MEAN CORPUSCULAR HGB CONC 33 g/dl (31.0-36.0); MEAN CORPUSCULAR VOLUME 96 fL (80-96); MONOCYTES # (AUTO) 0.5 /CMM (0.1-1.30); MONOCYTES % (AUTO) 11.5 % (2.0-12.0); NEUTROPHILS # (AUTO) 1.9 /CMM (1.8-8.9); NEUTROPHILS % (AUTO) 48.2 % (43.0-81.0); PLATELET COUNT (AUTO) 305 /CMM (150-450); RED BLOOD CELL COUNT(AUTO) 2.94 MIL/uL (4.5-6.0); WHITE BLOOD COUNT (AUTO) 3.9 K/uL (4.3-11.0)
[2018-07-29 08:22] LABS: CALCIUM, SERUM 7.6 mg/dL (8.5-10.1); CARBON DIOXIDE 28 mmol/L (21-32); CHLORIDE 105 mmol/L (98-107); CREATININE 0.9 mg/dL (0.6-1.3); GLUCOSE 130 mg/dL (74-106); MAGNESIUM 1.6 mg/dL (1.8-2.4); PHOSPHORUS 3.1 mg/dL (2.5-4.9); POTASSIUM 3.5 mmol/L (3.5-5.1); SODIUM SERUM 139 mmol/L (136-145); UREA NITROGEN, BLOOD 7 mg/dL (7-18)
[2018-07-29] MEDS: PANTOPRAZOLE 40 MG VIAL IV SCH ×2 (08:58→22:20)
[2018-07-29] MEDS: CARVEDILOL 3.125 MG TABLET PO SCH ×2 (08:59→22:21)
[2018-07-29] MEDS: DAKINS QUARTER STRENGTH (0.125%) 480 ML BOTTLE TOP SCH (09:00)
[2018-07-29] MEDS: BLOOD SUGAR DIAGNOSTIC 1 EACH STRIP IN SCH ×4 (09:07→22:21)
[2018-07-29] MEDS ORDERED: Magnesium 1GM/D5W 100ML PREMIX 100 ML IV SCH (09:35)
[2018-07-29] MEDS: Magnesium 1GM/D5W 100ML PREMIX 100 ML IV SCH ×2 (10:30→11:37)
[2018-07-29] MEDS: CADEXOMER IODINE 40 GM TUBE TP SCH (10:37)
--- NOTE | 2018-07-29 10:38 | NUR ---
telephone engineer note seen by dr mars bundle breaker aware that mag 1.6 k 3.5 new order given Addendum: 07/29/18 at 1717 by JANNIE ALCOCER RN [address] MARS NOTIFIED TH PATIENT ON NPO, HX DM, ASKED ABOUT IVF STATED NO AT THIS TIME ,BLOOD SUGAR 121. MG \DL AT THIS TIME ,WILL F\U
[2018-07-29] MEDS ORDERED: POTASSIUM CHLORIDE 20 MEQ POWDER PACKET GT ONE (11:00)
--- NOTE | 2018-07-29 11:30 | NUR ---
SIDE BOSS NOTE SPOKE WITH EVERARDO. TELEPHONE CONSENT TO EGD AD COLONOSCOPY OBTAINED
--- NOTE | 2018-07-29 14:30 | NUR ---
EMPLOYMENT PROGRAMS ANALYST NOTE SEEN BY Demi HUGHES NOTIFIED THAT PATIENT WILL HAVE EGD AND COLONOSCOPY, NEW ORDER FOR PREP GIVEN ,WILL F\U
[2018-07-29] MEDS ORDERED: SORBITOL SOLUTION 30 ML GT SCH (15:00)
--- NOTE | 2018-07-29 15:39 | NUR ---
COOKING INSTRUCTOR NOTE DR VELIZ AT BEDSIDE, PATIENT CONDITION UPDATED, UNABLE TO REMOVE SOFT RESTRAIN, PATIENT STILL AT RISK TO REMOVE ALL LINES AND G TUBE
[2018-07-29] MEDS ORDERED: PEG 3350/NA SULF,BICARB,CL/KCL 4,000 ML BOTTLE PO ONE (16:00)
[2018-07-29] MEDS ORDERED: MEROPENEM 500 MG in IV NS 0.9% 50 ML IV SCH (16:00)
[2018-07-29] MEDS: MEROPENEM 1 G in IV NS 0.9% 100 ML IV SCH (16:37)
--- NOTE | 2018-07-29 17:21 | NUR ---
BALE SEWER NOTE SPOKE WITH NURSING NANNY BABYSITTER ABOUT EGD AND COLONOSCOPY, STATED WILL DONE TOMORROW ABOUT 10 AM ,WILL F\U
--- NOTE | 2018-07-29 18:49 | NUR ---
VELOCITY SHOOTER NOTE SPOKE WITH PHARMACY AND DR SAUL TODD TO GIVE SORBITOL 120 ML VIA G [place] [address] TOMORROW
[2018-07-29] MEDS ORDERED: PEG 3350/NA SULF,BICARB,CL/KCL 4,000 ML BOTTLE GT SCH (20:00)
[2018-07-30] VITALS: BP 126/56
[2018-07-30] MEDS: MEROPENEM 1 G in IV NS 0.9% 100 ML IV SCH ×2 (03:32→16:24)
[2018-07-30 04:00] VITALS: BP 154/69
[2018-07-30] MEDS ORDERED: SORBITOL SOLUTION 30 ML GT SCH (05:00)
[2018-07-30] MEDS ORDERED: PEG 3350/NA SULF,BICARB,CL/KCL 4,000 ML BOTTLE GT SCH (05:00)
[2018-07-30] MEDS: VANCOMYCIN HCL 125 MG/2.5 ML ORAL.SUSP PO SCH ×3 (05:06→18:12)
[2018-07-30 07:08] LABS: BASOPHILS % (AUTO) 0.8 % (0.0-2.0); EOSINOPHILS % (AUTO) 6.3 % (0.0-6.0); HEMATOCRIT 30 % (39-51); HEMOGLOBIN 9.8 g/dL (13.5-17.5); LYMPHOCYTES # (AUTO) 1.3 /CMM (0.8-4.8); LYMPHOCYTES % (AUTO) 26.8 % (20.0-44.0); MEAN CORPUSCULAR HGB CONC 33 g/dl (31.0-36.0); MEAN CORPUSCULAR VOLUME 95 fL (80-96); MONOCYTES # (AUTO) 0.4 /CMM (0.1-1.30); MONOCYTES % (AUTO) 8.6 % (2.0-12.0); NEUTROPHILS # (AUTO) 2.8 /CMM (1.8-8.9); NEUTROPHILS % (AUTO) 57.5 % (43.0-81.0); PLATELET COUNT (AUTO) 361 /CMM (150-450); RED BLOOD CELL COUNT(AUTO) 3.16 MIL/uL (4.5-6.0); WHITE BLOOD COUNT (AUTO) 4.9 K/uL (4.3-11.0)
--- NOTE | 2018-07-30 07:21 | NUR ---
RN CLOSING NOTES PT REMAINS IN BED, AWAKE, ALERT ORIENTEDX1, BREATHING EVEN AND UNLABORED ON 2L O2NL, NO SOB NOTED. NO COMPLAINT OF PAIN OR DISCOMFORT AT THIS TIME. IV ACCESS ON THE RIGHT AC AND RIGHT HAND BOTH 20G. G TUBE IN PLACE WITH ABDOMINAL BINDER FOR PROTECTION. SOFT WRIST X2 RESTRAINTS IN PLACE FOR SAFETY . F/C IN PLACE. BOWEL PREP DONE VIE G TUBE FOR EGD AND COLOSCOPY. BED IN LOWEST LOCKED POSITION, CALL LIGHT WITHIN REACH AT ALL TIME. WILL ENDORSE TO AM NURSE FOR SADIQ.
[2018-07-30 07:28] LABS: CALCIUM, SERUM 7.9 mg/dL (8.5-10.1); CARBON DIOXIDE 29 mmol/L (21-32); CHLORIDE 103 mmol/L (98-107); CREATININE 1.1 mg/dL (0.6-1.3); GLUCOSE 101 mg/dL (74-106); MAGNESIUM 1.7 mg/dL (1.8-2.4); PHOSPHORUS 2.9 mg/dL (2.5-4.9); POTASSIUM 4.2 mmol/L (3.5-5.1); SODIUM SERUM 139 mmol/L (136-145); UREA NITROGEN, BLOOD 7 mg/dL (7-18)
--- NOTE | 2018-07-30 07:33 | NUR ---
MECHANICAL ENGINEERING TECHNICIAN OPENING NOTES RECEIVED BEDSIDE REPORT PATIENT AWAKE IN BED WITH FLAT AFFECT A/O X1 NO SIGNS OR SYMPTOMS OF RESPIRATORY DISTRESS ON 3 LTRS NASAL CANNULA NO ACUTE PAIN NOTED. ON MONITOR ST 105. BILATERAL SOFT WRIST RESTRAINTS CHECKED FOR CIRCULATION ORDER TO PREVENT FROM PULLING AT LINE AND INTERFERING WITH MEDICAL CARE (L)AC #20 GAUGE SALINE LOCK. NPO WITH GT CLAMPED.BOWEL PREP GIVEN ALL SAFETY PRECAUTIONS IN PLACE BED IN LOW POSITION CALL LIGHT WITHIN REACH . WILL CONT TO MONITOR
[2018-07-30 08:00] VITALS: BP 135/72
[2018-07-30] MEDS: BLOOD SUGAR DIAGNOSTIC 1 EACH STRIP IN SCH ×4 (08:13→23:20)
[2018-07-30] MEDS: CARVEDILOL 3.125 MG TABLET PO SCH ×2 (09:00→20:26)
[2018-07-30] MEDS ORDERED: POTASSIUM CHLORIDE 20 MEQ TAB.PRT.SR PO SCH (09:00)
[2018-07-30] MEDS: CADEXOMER IODINE 40 GM TUBE TP SCH (09:22)
[2018-07-30] MEDS: DAKINS QUARTER STRENGTH (0.125%) 480 ML BOTTLE TOP SCH (09:22)
[2018-07-30] MEDS: PANTOPRAZOLE 40 MG VIAL IV SCH ×2 (09:52→20:26)
--- NOTE | 2018-07-30 10:02 | NUR ---
LIVE OUT NANNY NOTES PATIENT LEFT FOR SURGERY VIA BED WITH STAFF VITALS STABLE
[2018-07-30] MEDS ORDERED: Magnesium 1GM/D5W 100ML PREMIX 100 ML IV SCH (10:41)
[2018-07-30 12:00] VITALS: BP 99/58
[2018-07-30] MEDS: Magnesium 1GM/D5W 100ML PREMIX 100 ML IV SCH ×2 (13:46→14:57)
[2018-07-30] MEDS: GLUCERNA 1.2 1,000 ML BOTTLE NG PRN (13:49)
[2018-07-30 16:00] VITALS: BP 125/61
--- NOTE | 2018-07-30 19:07 | NUR ---
RN CLOSING NOTES BEDSIDE REPOST GIVEN TO NOC ASLEEP ABLE TO AROUSE WITH TOUCH AND VOICE ORIENTEDX1, BREATHING EVEN AND UNLABORED ON 2L O2NL, NO SOB NOTED. NO COMPLAINT OF PAIN OR DISCOMFORT AT THIS TIME. IV ACCESS ON THE RIGHT AC # 20 GAUGE TKO G TUBE IN PLACEMENT CHECKED STARTED ON GLUCERNA 1.2 @ 20ML/HR AND TO INCREASE BY 10ML/HR Q 8-10 HOURS WITH THE GOAL OF 60ML/HR. TOLERATING WELL NO NAUSEA OR VOMITING NOTED ABDOMINAL BINDER FOR PULLING AT TUBE. SOFT WRIST X2 RESTRAINTS IN PLACE FOR SAFETY CHECKED FOR CIRCULATION Q2HR . F/C IN PLACE. . SAFETY PRECAUTIONS IN PLACE LOWEST LOCKED POSITION, CALL LIGHT WITHIN REACH AT ALL TIME. WILL ENDORSE TO [facility] FOR SADIQ
[2018-07-30 20:00] VITALS: BP 120/66
[2018-07-31] VITALS (8 sets, daily range): BP systolic 125–138; BP diastolic 54–78
[2018-07-31] MEDS: MEROPENEM 1 G in IV NS 0.9% 100 ML IV SCH ×2 (03:45→17:06)
[2018-07-31] MEDS: BLOOD SUGAR DIAGNOSTIC 1 EACH STRIP IN SCH ×4 (05:28→23:55)
--- NOTE | 2018-07-31 07:00 | NUR ---
DYE RANGE TENDER OPENING NOTES RECEIVED BEDSIDE REPORT PATIENT ASLEEP IN BED A/O X1 ABLE TO AROUSE BY TOUCH AND VOICE NO SIGNS OR SYMPTOMS OF RESPIRATORY DISTRESS ON 3 LTRS NASAL CANNULA NO ACUTE PAIN NOTED. ON MONITOR ST 105. BILATERAL SOFT WRIST RESTRAINTS CHECKED FOR CIRCULATION ORDER TO PREVENT FROM PULLING AT LINE AND INTERFERING WITH MEDICAL CARE (L)AC #20 GAUGE SALINE LOCK. NPO WITH GT RUNNING GLUCERNA 1.2 @30 ML/HR WILL INCREASE BY 10 ML EVERY 8-10 HOUSRS TILL GOAL OF 60ML/HR .ALL SAFETY PRECAUTIONS IN PLACE BED IN LOW POSITION CALL LIGHT WITHIN REACH . WILL CONT TO MONITOR
[2018-07-31 07:29] LABS: CALCIUM, SERUM 7.4 mg/dL (8.5-10.1); CARBON DIOXIDE 29 mmol/L (21-32); CHLORIDE 104 mmol/L (98-107); GLUCOSE 115 mg/dL (74-106); MAGNESIUM 1.8 mg/dL (1.8-2.4); PHOSPHORUS 2.7 mg/dL (2.5-4.9); POTASSIUM 3.2 mmol/L (3.5-5.1); SODIUM SERUM 140 mmol/L (136-145); UREA NITROGEN, BLOOD 6 mg/dL (7-18)
[2018-07-31 07:34] LABS: BASOPHILS % (AUTO) 0.8 % (0.0-2.0); EOSINOPHILS % (AUTO) 8.2 % (0.0-6.0); HEMATOCRIT 27 % (39-51); HEMOGLOBIN 8.8 g/dL (13.5-17.5); LYMPHOCYTES # (AUTO) 1.5 /CMM (0.8-4.8); LYMPHOCYTES % (AUTO) 33.8 % (20.0-44.0); MEAN CORPUSCULAR HGB CONC 33 g/dl (31.0-36.0); MEAN CORPUSCULAR VOLUME 95 fL (80-96); MONOCYTES # (AUTO) 0.4 /CMM (0.1-1.30); MONOCYTES % (AUTO) 8.7 % (2.0-12.0); NEUTROPHILS # (AUTO) 2.1 /CMM (1.8-8.9); NEUTROPHILS % (AUTO) 48.5 % (43.0-81.0); PLATELET COUNT (AUTO) 330 /CMM (150-450); RED BLOOD CELL COUNT(AUTO) 2.82 MIL/uL (4.5-6.0); WHITE BLOOD COUNT (AUTO) 4.4 K/uL (4.3-11.0)
[2018-07-31] MEDS: PANTOPRAZOLE 40 MG VIAL IV SCH ×2 (09:23→21:21)
[2018-07-31] MEDS: CARVEDILOL 3.125 MG TABLET GT SCH ×2 (09:23→21:20)
[2018-07-31] MEDS: DAKINS QUARTER STRENGTH (0.125%) 480 ML BOTTLE TOP SCH (09:24)
[2018-07-31] MEDS: CADEXOMER IODINE 40 GM TUBE TP SCH (09:24)
[2018-07-31] MEDS ORDERED: POTASSIUM CHLORIDE 20 MEQ POWDER PACKET GT ONE (09:30)
--- NOTE | 2018-07-31 10:57 | NUR ---
ASSISTANT STORE MANAGER SALES NOTES IV TO (L) FOREARM REMOVED /LEAKING REPLACED WITH IV # 20 GAUGE TO (L) WRIST
--- NOTE | 2018-07-31 11:19 | NUR ---
CHARGE NOTES TRANSFER TO MED SURG PER DR. FONTANEZ
[2018-07-31] MEDS: INSULIN REGULAR, HUMAN 100 UNIT/ML 3 ML VIAL SQ PRN (12:56)
[2018-07-31] MEDS ORDERED: NEUTRA PHOS 1 POWD.PACKET NG ONE (13:00)
--- NOTE | 2018-07-31 19:25 | NUR ---
MS RN NOTE REPORT GIVEN BEDSIDE. PATIENT RECEIVED IN BED A/O X1. PATIENT RESPONDS TO TOUCH. PATIENT HAS NO S/S OF DISTRESS. PATIENT SHOWS NO S/S OF SOB/, PATIENT SATURATING WELL ON 2L NC. NO S/S OF CHEST PAIN. ALL LINES INTACT AND PATENT. PATIENT TOLERATING GTUBE FEEDING. NO N/V/D/C NOTED. PATIENT CURRENTLY RELEASED FROM WRIST RESTRAINTS. NO NOTED SELF INJURIOUS BEHAVIOR. PATIENT NOT PULLING AT LINES OR TUBING. F/C IN PLACE DRAINING TO GRAVITY. BED IN LOWEST LOCKED POSITION, SIDE RAILS UP X 3, CALL LIGHT WITHIN REACH.
--- NOTE | 2018-07-31 19:28 | NUR ---
RN MS CLOSING NOTES NOTES BEDSIDE REPOST GIVEN TO KIKA ASLEEP ABLE TO AROUSE WITH TOUCH AND VOICE ORIENTEDX1, BREATHING EVEN AND UNLABORED ON 2L O2NL, NO SOB NOTED. NO COMPLAINT OF PAIN OR DISCOMFORT AT THIS TIME. IV ACCESS ON THE LEFT AC #20 GAUGE SALINE LOCK G TUBE IN PLACE PLACEMENT CHECKED GLUCERNA 1.2 @ 50ML/HR AND TO INCREASE BY 10ML/HR Q 8-10 HOURS WITH THE GOAL OF 60ML/HR. TOLERATING WELL NO NAUSEA OR VOMITING NOTED ABDOMINAL BINDER FOR PULLING AT TUBE. SOFT WRIST X2 RESTRAINTS IN PLACE FOR SAFETY RELEASED THROUGHOUT THE DAY CHECKED FOR CIRCULATION Q2HR . F/C IN PLACE. . SAFETY PRECAUTIONS IN PLACE LOWEST LOCKED POSITION, CALL LIGHT WITHIN REACH AT ALL TIME. WILL ENDORSE TO [facility] FOR SADIQ
[2018-08-01 00:54] VITALS: BP 135/87
[2018-08-01] MEDS: MEROPENEM 1 G in IV NS 0.9% 100 ML IV SCH ×2 (03:32→15:25)
[2018-08-01 04:34] VITALS: BP 132/108
[2018-08-01 05:00] VITALS: BP 132/108
[2018-08-01] MEDS: BLOOD SUGAR DIAGNOSTIC 1 EACH STRIP IN SCH ×3 (06:24→18:07)
--- NOTE | 2018-08-01 07:00 | NUR ---
MS RN NOTES RECEIVED REPORT FROM PM NURSE. PT IN BED, ASLEEP. PT IS CONFUSED A/OX1. RESPONDS TO TOUCH. ON 02 AT 3L NC. NO SOB NOTED. PT IS RECEIVING GTF AT 50CC/HR WITH NO RESIDUAL. IV SITE PATENT/FLUSHED. HOB ELEVATED 30 DEG. PER PM SHIFT, NO BM LAST NIGHT/NO ACTIVE BLEEDING. CALL LIGHT IN REACH. SAFETY MEASURES IN PLACE. WILL CONT TO MONITOR.
--- NOTE | 2018-08-01 07:38 | NUR ---
MS RN NOTE REPORT GIVEN BEDSIDE. PATIENT RECEIVED IN BED A/O X1. PATIENT RESPONDS TO TOUCH. PATIENT HAS NO S/S OF DISTRESS. PATIENT SHOWS NO S/S OF SOB/, PATIENT SATURATING WELL ON 3L NC. NO S/S OF CHEST PAIN. ALL LINES INTACT AND PATENT. PATIENT TOLERATING GTUBE FEEDING. NO N/V/D/C NOTED. PATIENT CURRENTLY RELEASED FROM WRIST RESTRAINTS. NO NOTED SELF INJURIOUS BEHAVIOR. PATIENT NOT PULLING AT LINES OR TUBING. F/C IN PLACE DRAINING TO GRAVITY. BED IN LOWEST LOCKED POSITION, SIDE RAILS UP X 3, CALL LIGHT WITHIN REACH. WILL ENDORSE POC TO AM FOR SADIQ
[2018-08-01 08:00] VITALS: BP 116/75
[2018-08-01] MEDS: CARVEDILOL 3.125 MG TABLET GT SCH (08:42)
[2018-08-01] MEDS: PANTOPRAZOLE 40 MG VIAL IV SCH ×2 (08:44→20:54)
[2018-08-01] MEDS: CADEXOMER IODINE 40 GM TUBE TP SCH (08:52)
[2018-08-01] MEDS: DAKINS QUARTER STRENGTH (0.125%) 480 ML BOTTLE TOP SCH (08:52)
[2018-08-01] MEDS ORDERED: CARVEDILOL 3.125 MG TABLET GT ONE (09:30)
[2018-08-01] MEDS: GLUCERNA 1.2 1,000 ML BOTTLE NG PRN (10:57)
[2018-08-01] MEDS: INSULIN REGULAR, HUMAN 100 UNIT/ML 3 ML VIAL SQ PRN (11:56)
--- NOTE | 2018-08-01 12:30 | NUR ---
MS RN NOTES BRENT PRODUCTION PACKAGER REQUESTED FOR NURSE TO INPUT ORDERS FOR PROSTAT, MVI, AND VIT C. NURSE ORDERED REQUESTED.
[2018-08-01 16:00] VITALS: BP 131/79
--- NOTE | 2018-08-01 17:07 | NUR ---
MS RN NOTES PT TRANSFERRED TO 3 ROOM 328-1. GEE KENNEDY RECEIVED REPORT FOR SADIQ.
--- NOTE | 2018-08-01 17:20 | NUR ---
MSRN OPENING. PT WITH ISO R/T HX C.DIFF. PT TRANS FROM CORAL WITH LABEL FOLDER. PT EYES OPEN TO FIRM TOUCH, NON VERBAL AT THIS TIME. PT WITH O2 VIA NC AT 3LPM, NO OBVIOUS S/S OF RESP DISTRESS, AUSCULTATED WITH RHONCHI . PT WITHOUT OBVIOUS S/S OF DISTRESS OR DISCOMFORT. PT WITH IVC AT L HAND INTACT WITH IV AB IN PROCESS. PT WITH MEJIA NAD, DRAINING LITE YELLOW URINE. PT WITH G.TUBE NAD, INTACT AND OPERATIONAL AT 50CC/HR. PT WITH FLEXISEAL INTACT AND LIQUID STOOL IN TUBE. ENDORSED PT WITH WOUND CARE COMPLETED, DRESSINGS CLEAN AND INTACT. PT REPOSITIONED AND OFFLOADED. PT CARE DISCUSSED AT BEDSIDE WITH RN. BED IN LOWEST LOCKED POSITION WITH HANDRIALSX3 AND CALL GALINDO WITHIN REACH. WILL CONTINUE POC.
--- NOTE | 2018-08-01 19:30 | NUR ---
RECEIVED PATIENT IN BED WITH EYES OPEN. CONFUSED, UNCLEAR SPEECH. NO ACUTE DISTRESS NOTED. NO SIGNS OF PAIN NOTED. IV SITE PATENT, INTACT; FLUSHED. MEJIA CATH INTACT; DRAINING CLEAR YELLOW URINE. GT PATENT, INTACT; IN PLACE VIA AUSCULTATION. GTF ONGOING. HOB RAISED. FLEXISEAL INTACT; NO OUTPUT AT THIS TIME. BILATERAL MITTENS IN PLACE. RELEASED FOR ROM AND SKIN CHECK. ON LOW BED WITH BILATERAL UPPER SIDE RAILS UP. CALL GALINDO WITHIN EASY REACH. WILL CONTINUE TO MONITOR.
[2018-08-01 20:00] VITALS: BP 141/75
[2018-08-01] MEDS: CARVEDILOL 6.25 MG TABLET GT SCH (20:54)
[2018-08-02] MEDS: BLOOD SUGAR DIAGNOSTIC 1 EACH STRIP IN SCH ×3 (00:18→13:09)
[2018-08-02] MEDS: INSULIN REGULAR, HUMAN 100 UNIT/ML 3 ML VIAL SQ PRN ×3 (00:19→13:14)
[2018-08-02] MEDS: MEROPENEM 1 G in IV NS 0.9% 100 ML IV SCH (04:03)
--- NOTE | 2018-08-02 06:44 | NUR ---
PATIENT ASLEEP, EASILY AROUSABLE. RESPIRATIONS EVEN. NO SIGNS OF PAIN NOTED. NO SYMPTOMS OF HYPER/HYPOGLYCEMIA. DUE MEDS GIVEN WITH NO ASE NOTED. NEEDS ATTENDED. TURNED AND REPOSITIONED Q 2 HOURS. KEPT CLEAN, DRY, AND COMFORTABLE. SAFETY PRECAUTIONS AND COMFORT MEASURES IN PLACE. WILL GIVE REPORT TO DAY SHIFT FOR CONTINUITY OF CARE.
[2018-08-02 07:00] VITALS: BP 109/72
[2018-08-02 07:07] LABS: BASOPHILS % (AUTO) 0.7 % (0.0-2.0); EOSINOPHILS % (AUTO) 7.4 % (0.0-6.0); HEMATOCRIT 28 % (39-51); LYMPHOCYTES # (AUTO) 1.8 /CMM (0.8-4.8); LYMPHOCYTES % (AUTO) 33.2 % (20.0-44.0); MEAN CORPUSCULAR HGB CONC 33 g/dl (31.0-36.0); MEAN CORPUSCULAR VOLUME 95 fL (80-96); MONOCYTES # (AUTO) 0.4 /CMM (0.1-1.30); MONOCYTES % (AUTO) 6.7 % (2.0-12.0); NEUTROPHILS # (AUTO) 2.8 /CMM (1.8-8.9); PLATELET COUNT (AUTO) 372 /CMM (150-450); RED BLOOD CELL COUNT(AUTO) 2.89 MIL/uL (4.5-6.0); WHITE BLOOD COUNT (AUTO) 5.3 K/uL (4.3-11.0)
[2018-08-02 07:09] LABS: CALCIUM, SERUM 7.9 mg/dL (8.5-10.1); CARBON DIOXIDE 30 mmol/L (21-32); CHLORIDE 103 mmol/L (98-107); GLUCOSE 158 mg/dL (74-106); POTASSIUM 4.5 mmol/L (3.5-5.1); SODIUM SERUM 136 mmol/L (136-145); UREA NITROGEN, BLOOD 11 mg/dL (7-18)
--- NOTE | 2018-08-02 07:30 | NUR ---
MS RN OPENING NOTES RECEIVED PATIENT IN STABLE CONDITION. IN NO APPARENT DISTRESS. BEDSIDE RAILS ARE UPX2. BED IS LOCKED AND LOWERED. CALL LIGHT IS WITHIN REACH. IV LINE IS INTACT AND PATENT. WILL CONTINUE TO MONITOR PATIENT.
[2018-08-02] MEDS ORDERED: ASCORBIC ACID 500 MG TABLET PO SCH (09:00)
[2018-08-02] MEDS ORDERED: PROSOURCE / PROSTAT (PYXIS) 30 ML UDC GT SCH (09:00)
[2018-08-02] MEDS ORDERED: MULTIVITAMINS,THERAGRAN 1 UDTAB TABLET GT SCH (09:00)
[2018-08-02 09:30] VITALS: BP 109/72
[2018-08-02] MEDS: CARVEDILOL 6.25 MG TABLET GT SCH (09:30)
[2018-08-02] MEDS: PANTOPRAZOLE 40 MG VIAL IV SCH (09:31)
[2018-08-02] MEDS: DAKINS QUARTER STRENGTH (0.125%) 480 ML BOTTLE TOP SCH (09:54)
[2018-08-02] MEDS: CADEXOMER IODINE 40 GM TUBE TP SCH (09:54)
[2018-08-02] MEDS ORDERED: PANT40VI IV (11:16)
[2018-08-02] MEDS ORDERED: MERO1PIG IV (11:16)
--- NOTE | 2018-08-02 15:37 | NUR ---
PATIENT DISCHARGED IN STABLE CONDITION. IN NO APPARENT DISTRESS. ALL NEEDS WERE MET. FLEXISEAL WAS REMOVED. ID BAND WAS REMOVED. EXITCARE WAS SIGNED AND GIVEN TO PARAMEDICS. BELONGINGS WERE CHECKED. PATIENT WAS ESCORTED OUT OF THE FACILITY VIA AMBULANCE BY EMT. REPORT GIVEN TO [facility].
== END 2018-08-02 15:30 | DRG 853 ==
LOC: ER 10:46 → TELE1 12:31 → MEDSG1 07-31 11:05 → MED 08-01 17:01
PROVIDERS: ADMIT Hospitalist; ATTEND Nurse Practitioner Acute Care
PROC: 30233N1 Transfusion of Nonautologous Red Blood Cells into Peripheral Vein, Percutaneous Approach (ICD-10-PCS; 2018-07-26)
PROC: 0KBP0ZZ Excision of Left Hip Muscle, Open Approach (ICD-10-PCS; principal; 2018-07-27)
PROC: 0KBN0ZZ Excision of Right Hip Muscle, Open Approach (ICD-10-PCS; 2018-07-27)
PROC: 0JBR0ZZ Excision of Left Foot Subcutaneous Tissue and Fascia, Open Approach (ICD-10-PCS; 2018-07-27)
PROC: 0DB68ZX Excision of Stomach, Via Natural or Artificial Opening Endoscopic, Diagnostic (ICD-10-PCS; 2018-07-30)
PROC: 0DBP8ZX Excision of Rectum, Via Natural or Artificial Opening Endoscopic, Diagnostic (ICD-10-PCS; 2018-07-30)
DX: A41.9 Sepsis, unspecified organism (principal); L89.623 Pressure ulcer of left heel, stage 3; L89.154 Pressure ulcer of sacral region, stage 4; E43 Unspecified severe protein-calorie malnutrition; R53.2 Functional quadriplegia; J18.9 Pneumonia, unspecified organism; N39.0 Urinary tract infection, site not specified; E87.1 Hypo-osmolality and hyponatremia; K92.2 Gastrointestinal hemorrhage, unspecified; D62 Acute posthemorrhagic anemia; J44.0 Chronic obstructive pulmonary disease with (acute) lower respiratory infection; D68.59 Other primary thrombophilia; K51.50 Left sided colitis without complications; I25.10 Atherosclerotic heart disease of native coronary artery without angina pectoris; Z95.1 Presence of aortocoronary bypass graft; I25.5 Ischemic cardiomyopathy; J44.9 Chronic obstructive pulmonary disease, unspecified; I10 Essential (primary) hypertension; E11.9 Type 2 diabetes mellitus without complications; F03.90 Unspecified dementia, unspecified severity, without behavioral disturbance, psychotic disturbance, mood disturbance, and anxiety; E83.42 Hypomagnesemia; E03.9 Hypothyroidism, unspecified; E78.5 Hyperlipidemia, unspecified; Z68.20 Body mass index [BMI] 20.0-20.9, adult; R62.7 Adult failure to thrive; E87.6 Hypokalemia; K62.1 Rectal polyp; K44.9 Diaphragmatic hernia without obstruction or gangrene; R60.0 Localized edema
CPT/HCPCS: 36415; 71045-TC; 80048-TC; 80061-TC; 80076-TC; 80202-TC; 81000-TC; 82272-TC; 82962-TC; 83605-TC; 83690-TC; 83735-TC; 84100-TC; 84439-TC; 84443-TC; 85025-TC; 85730-TC; 86850-TC; 86921-TC; 87040-TC; 87081-TC; 87086-TC; 87186-TC; 88305-TC; A4216; A6253; A6402; A6403; C9113; G0378; J0692; J1815; J2185; J2704; J3370; J3475; J3490; J7030; J7040; J7042; J7050; J7060; P9016-BL